=== PATIENT | female | born 1955 | race Caucasian/White ===

== ENCOUNTER → 2023-01-27 14:44 | Outpatient (CLI) | payer MEDICARE, MEDICAID, OTHER, SELFPAY ==
--- NOTE | 2023-01-27 | DI.MRI.S_ITS ---
PROCEDURE: MR HEAD/BRAIN WO CON INDICATIONS: SEVERE DEMENTIA TECHNIQUE: Non-contrast axial T1 spin echo, axial T2 fast spin echo, sagittal and axial FLAIR, coronal T2 fast spin echo, axial gradient echo, axial diffusion and ADC through the brain. COMPARISON: None. FINDINGS: Image quality: This examination is limited by involuntary motion artifact. CSF spaces: Ventricles appear symmetric in size and shape. Basal cisterns are patent. No extra-axial fluid collections. Brain: No intracranial bleeds or mass effects. There is cerebral volume loss for age. There are periventricular and deep white matter chronic small vessel ischemic changes. Brainstem appears normal. Diffusion-weighted images show no acute ischemic insults. No chronic ischemic insults. Normal intravascular flow voids are present. Skull and face: Calvarial bone marrow is normal in signal. Orbits are normal. Sinuses: Sinuses and mastoids are clear. IMPRESSION: Brain MRI within normal limits for age, with note made of brain parenchymal volume loss and chronic small vessel ischemic change. Dictated by: Ryan Mackay M.D. on 01/27/2023 at 17:06 Approved by: Ryan Mackay M.D. on 01/27/2023 at 17:06
== END ==
PROVIDERS: Referring Provider Psychiatry & Neurology Vascular Neurology; Visit Provider Psychiatry & Neurology Vascular Neurology
DX: F03.C18 Unspecified dementia, severe, with other behavioral disturbance; R41.89 Other symptoms and signs involving cognitive functions and awareness
CPT/HCPCS: 70551

== ENCOUNTER 2023-02-09 02:21 | Inpatient (IN) | payer MEDICARE, OTHER, MEDICAID, SELFPAY ==
[2023-02-09] VITALS (23 sets, daily range): BP systolic 92–155; BP diastolic 46–82; PULSE 65–83; RESP 14–20; TEMP 36.1–37; O2SAT 95–100; BMI 18.3
--- NOTE | 2023-02-09 | DI.RAD.S_ITS ---
PROCEDURE: XR PELVIS 1-2V INDICATIONS: POST OP TECHNIQUE: 1 view of the lower pelvis acquired. COMPARISON: [facility], , XR PELVIS 1-2V, 02/09/2023, 19:49. FINDINGS: Bones: Patient is status post right total hip arthroplasty, with hardware components in expected positions. The hip joint appears congruent. The visualized bony structures appear intact. Severe degenerative changes of the left hip as before. Soft tissues: Overlying postoperative changes are noted. No suspicious soft tissue densities. IMPRESSION: Status post right total hip arthroplasty with expected postsurgical soft tissue changes. No evidence for gross hardware complication. Dictated by: Lex Alejandra M.D. on 02/10/2023 at 12:18 Approved by: Lex Alejandra M.D. on 02/10/2023 at 12:19
--- NOTE | 2023-02-09 | DI.RAD.S_ITS ---
PROCEDURE: XR PELVIS 1-2V INDICATIONS: RIGHT SIDED INTRA OP TECHNIQUE: Intra-operative view of the pelvis and hip acquired. COMPARISON: [facility], CR, XR HIP W PEL IF DONE RT 2V, 02/09/2023, 2:49. FINDINGS: Bones: Intraoperative devices prior to placement of arthroplasty prostheses are in expected positions. No fractures or suspicious bony lesions. Soft tissues: Overlying surgical retractors are present, along with other intraoperative changes. IMPRESSION: 1. Intraoperative study obtained for surgical guidance demonstrates placement of femoral prosthetic component. Dictated by: Parvez Shipman M.D. on 02/09/2023 at 20:18 Approved by: Parvez Shipman M.D. on 02/09/2023 at 20:20
--- NOTE | 2023-02-09 02:38 | DI.RAD.S_ITS ---
PROCEDURE: XR HIP W PEL IF DONE RT 2V INDICATIONS: fall with hip pain TECHNIQUE: AP pelvis with lateral view(s) of the right hip(s). COMPARISON: None. FINDINGS: Bones: There is an acute intertrochanteric femoral neck fracture with displacement and angulation. Probable healed old left femoral neck fracture with increased angulation of the left femoral neck. Pelvic ring appears intact. No suspicious bony lesions. Moderate arthritic changes in hips and sacroiliac joints bilaterally. Severe degenerative disc and facet disease in lower lumbar spine Soft tissues: The visualized bowel gas pattern is normal. No suspicious soft tissue calcifications. IMPRESSION: 1. Intertrochanteric right femoral neck fracture. No significant discrepancy with the manufacturing supervisor 2nd shift radiology preliminary report. Dictated by: Mandy Flores M.D. on 02/09/2023 at 8:11 Approved by: Mandy Flores M.D. on 02/09/2023 at 8:14
--- NOTE | 2023-02-09 02:44 | DI.CT.S_ITS ---
PROCEDURE: CT CERVICAL SPINE WO CON INDICATIONS: fall out of bed with dementia TECHNIQUE: Noncontrast 3 mm thick sections acquired from the skull base to the T4 level. Sagittal and coronal reformats were then constructed. For radiation dose reduction, the following was used: automated exposure control, adjustment of mA and/or kV according to patient size. COMPARISON: None. FINDINGS: Image quality: Excellent. Bones: No fractures or dislocations. Degenerative disc disease, [id number] at C4-C5, C5-C6 and C6-C7. Moderate facet arthropathy scattered in cervical spine. Degenerative joint disease of the atlantoaxial joint. Visualized superior ribs are intact. Soft tissues: Prevertebral soft tissues are normal in thickness. No paravertebral hematomas. No apical pneumothoraces. IMPRESSION: 1. No acute cervical spine injuries. 2. Degenerative changes in cervical spine. No significant discrepancy with the car shifter radiology preliminary report. Dictated by: Mandy Flores M.D. on 02/09/2023 at 7:59 Approved by: Mandy Flores M.D. on 02/09/2023 at 8:00
--- NOTE | 2023-02-09 02:44 | DI.CT.S_ITS ---
PROCEDURE: CT HEAD/BRAIN WO CON INDICATIONS: fall out of bed with dementia TECHNIQUE: Noncontrast 4.5 mm thick angled axial sections acquired from the foramen magnum to the vertex, with coronal and sagittal reformats. For radiation dose reduction, the following was used: automated exposure control, adjustment of mA and/or kV according to patient size. COMPARISON: [facility], MR, MR HEAD/BRAIN WO CON, 01/27/2023, 17:12. FINDINGS: Image quality: Excellent. CSF spaces: Basal cisterns are patent. No extra-axial fluid collections. The ventricles are symmetric in size and shape. Brain: No intracranial bleeds or masses. There is cerebral volume loss for age, with resultant ventricular and sulcal prominence. There are periventricular and deep white matter chronic small vessel ischemic changes. There is intracranial internal carotid artery atherosclerosis. Skull and face: Calvarium and visualized facial bones appear intact, without suspicious lesions. Sinuses: Visualized sinuses and mastoids are clear. IMPRESSION: 1. No acute intracranial abnormalities. 2. Cerebral volume loss and chronic microvascular ischemic changes. Dictated by: Mandy Flores M.D. on 02/09/2023 at 7:46 Approved by: Mandy Flores M.D. on 02/09/2023 at 7:50
--- NOTE | 2023-02-09 04:16 | ED.FALL ---
HPI - Fall General Chief Complaint: Fall Stated Complaint: Fall from bed Time Seen by Provider: 02/09/23 04:09 Source: EMS Mode of arrival: EMS History of Present Illness HPI Narrative: This is a 67-year-old female with reported history of dementia patient's current home medications include lorazepam and citalopram. She presents from care facility where she had a fall the side of her bed to the ground. They believe it occurred about 10 minutes prior to being seen by staff. Patient is unable to give history she can tell me her name, she was able to give me the year but has difficulty give me any information. She does have pain in her right hip. She does not know if she hit her head, unknown if any loss of consciousness. Patient does not have any pain other than at the hip or with movement of the right leg. No known drug allergies per EMR or patient's facility paperwork. Patient currently denies headache or neck pain. Denies any chest pain or shortness of breath. Denies nausea or vomiting or other GI or urinary symptoms. She indicates her leg hurts. She does not give much additional history. Related Data Home Medications Medication Instructions Recorded Confirmed citalopram 10 mg tablet 10 mg PO DAILY 02/09/23 02/09/23 ibuprofen 200 mg PO DAILY Pain 02/09/23 02/09/23 lorazepam 0.5 mg tablet 0.5 mg PO Q6H Agitation 02/09/23 02/09/23 Allergies Allergy/AdvReac Type Severity Reaction Status Date / Time No Known Drug Allergies Allergy Verified 02/09/23 02:26 Review of Systems Review of Systems ROS Unobtainable: All systems reviewed & are unremarkable except as noted in HPI and below Patient History Social History marital status: household members: caregiver Smoking Status: Never smoker alcohol intake: former Exam Narrative Exam Narrative: GEN: well nourished, well appearing elderly female, alert and oriented to year, patient appears to be in mild to moderate distress. HEENT: Atraumatic, pupils are equal round reactive to light, extraocular movements are intact, nares are clear, TMs are clear with no fluid, there is no conjunctival pallor. Throat is clear without any exudates, erythema, tonsillar enlargement or uvular deviation, no facial droop. HEART: Regular rate and rhythm without murmur, clicks, rubs. pulses are equal in upper and lower extremities LUNGS:Lungs clear to auscultation, no wheezes, rales, crackles, chest moves symmetrically ABD:bowel sounds normal, soft, non-tender, no guarding, rebound, rigidity, no masses noted, no hepatosplenomegaly :No CVA tenderness MSCL: Patient is tender over the right, she is increased pain with of the hip. No bony tenderness in the knee or lower leg. She is able to dorsiflex and plantar flex bilaterally., no muscle atrophy, muscles strength 5/5 upper and lower extremities, full range of motion, dorsalis pedis positive bilaterally. Cap refill less than 2 seconds. NEURO:CN 2-12 intact, sensation normal SKIN: No rash, erythema or other skin infections. Initial Vital Signs Initial Vital Signs: Vital Signs Pulse Rate 76 02/09/23 02:24 Pulse Oximetry 99 02/09/23 02:24 Course Orders Ordered: Acetaminophen (Acetaminophen 325 Mg Tablet) 650 mg PO Q6H PRN PRN Reason: Fever/Mild Pain (1-3) Last Admin: 02/09/23 06:39 Dose: 650 mg Documented By: SHERRI Hydrocodone Bitart/Acetaminophen (Hydrocodone/Acet 5/325 Tablet) 1 tab PO Q4H PRN PRN Reason: Pain, Moderate (4-6) Citalopram Hydrobromide (Citalopram 10 Mg Tablet) 10 mg PO DAILY [facility] Last Admin: 02/09/23 15:52 Dose: Not Given Documented By: BENI Docusate Sodium (Docusate 100 Mg Capsule) 100 mg PO BID [facility] Enoxaparin Sodium (Enoxaparin 40 Mg/0.4 Ml Syringe) 40 mg SUBCUT DAILY [facility] Hydromorphone HCl (Hydromorphone 0.5 Mg Inj) 0.5 mg IV Q3H PRN PRN Reason: Pain, Moderate (4-6) Last Admin: 02/10/23 07:03 Dose: 0.5 mg Documented By: Admin: 02/10/23 03:19 Dose: 0.5 mg Documented By: Admin: 02/10/23 00:16 Dose: 0.5 mg Documented By: Admin: 02/09/23 13:51 Dose: 0.5 mg Documented By: BENI Lactated Ringer's (Lactated Ringers) 1,000 mls @ 42 mls/hr IV NOW ONE Stop: 02/10/23 17:37 Last Infusion: 02/09/23 21:37 Dose: 0 mls/hr Documented By: Admin: 02/09/23 20:03 Dose: 42 mls/hr Documented By: Infusion: 02/09/23 20:03 Dose: 42 mls/hr Documented By: Admin: 02/09/23 17:49 Dose: 42 mls/hr Documented By: YOVANI Ceftriaxone Sodium 1,000 mg/ (Sodium Chloride) 100 mls @ 200 mls/hr IV Q24H [facility] Stop: 02/12/23 18:29 Last Admin: 02/09/23 23:21 Dose: Not Given Documented By: Lactated Ringer's (Lactated Ringers) 1,000 mls @ 100 mls/hr IV CONT MANUEL Last Admin: 02/09/23 23:22 Dose: 100 mls/hr Documented By: Cefazolin Sodium/Dextrose (Ancef) 100 mls @ 200 mls/hr IV Q8H [facility] Stop: 02/10/23 11:29 Last Infusion: 02/10/23 03:20 Dose: 0 mls/hr Documented By: Admin: 02/10/23 03:05 Dose: 200 mls/hr Documented By: Lorazepam (Lorazepam 0.5 Mg Tablet) 0.5 mg PO Q6HR PRN PRN Reason: Agitation Last Admin: 02/10/23 00:24 Dose: 0.5 mg Documented By: Naloxone HCl (Naloxone 0.4 Mg/Ml Vial) 0.2 mg IV Q2MIN PRN PRN Reason: Opiate Reversal Ondansetron HCl (Ondansetron 4 Mg/2 Ml Inj) 4 mg IV Q4HR PRN PRN Reason: Nausea And Vomiting Ondansetron HCl (Ondansetron 4 Mg Odt) 4 mg PO Q4HR PRN PRN Reason: Nausea Polyethylene Glycol (Polyethylene Glycol 3350 17 Gm Powd.Pack) 17 gm PO DAILY PRN PRN Reason: Constipation Discontinued Medications Acetaminophen (Acetaminophen 325 Mg Tablet) 975 mg PO PACUNOW PRN PRN Reason: Pain, Mild (1-3) Bupivacaine HCl 30 ml/ (Epinephrine HCl 0.15 mg) 0 ml INJ NOW ONE Stop: 02/09/23 19:38 Last Admin: 02/09/23 19:38 Dose: 60 ml Documented By: CC Fentanyl (Fentanyl 100 Mcg/2 Ml Inj) 0 mcg IV Q5M PRN PRN Reason: Pain, Moderate (4-6) Hydromorphone HCl (Hydromorphone 2 Mg Inj) 0 mg IV Q5M PRN PRN Reason: Pain, Moderate (4-6) Sodium Chloride (Normal Saline 0.9%) 1,000 mls @ 75 mls/hr IV CONT MANUEL Last Admin: 02/09/23 15:31 Dose: 75 mls/hr Documented By: BENI Cefazolin Sodium/Dextrose (Ancef) 100 mls @ 200 mls/hr IV NOW ONE Stop: 02/09/23 18:59 Last Infusion: 02/09/23 18:55 Dose: 0 mls/hr Documented By: Admin: 02/09/23 18:50 Dose: 200 mls/hr Documented By: Morphine Sulfate (Morphine 2 Mg/Ml Inj) 2 mg IV NOW ONE Stop: 02/09/23 04:15 Last Admin: 02/09/23 04:24 Dose: 2 mg Documented By: KELLI Morphine Sulfate (Morphine 4 Mg/Ml Inj) 3 mg IV Q4HR PRN PRN Reason: Pain, Severe (7-10) Last Admin: 02/09/23 12:28 Dose: 3 mg Documented By: Admin: 02/09/23 08:22 Dose: 3 mg Documented By: BENI Ondansetron HCl (Ondansetron 4 Mg/2 Ml Inj) 4 mg IV Q8HR PRN PRN Reason: Nausea And Vomiting Ondansetron HCl (Ondansetron 4 Mg/2 Ml Inj) 4 mg IV NOW PRN PRN Reason: Nausea And Vomiting Oxycodone/Acetaminophen (Oxycodone/Acetaminophen 5/325 Tablet) 1 tab PO PACUNOW PRN PRN Reason: Mild or Moderate Pain Tranexamic Acid (Tranexamic Acid 1,000 Mg Vial) 2,000 mg INJ NOW ONE Stop: 02/09/23 20:03 Last Admin: 02/09/23 20:53 Dose: 1,000 mg Documented By: Admin: 02/09/23 19:25 Dose: 1,000 mg Documented By: AB Vital Signs Vital signs: Vital Signs - 8 hr 02/09/23 02:25 02/09/23 02:24 02/09/23 02:30 Temperature 97.2 F L Pulse Rate 75 76 71 Respiratory Rate 17 Blood Pressure 119/69 Pulse Oximetry 99 99 98 Oxygen Delivery Method Room Air 02/09/23 03:00 02/09/23 03:36 02/09/23 04:00 Temperature Pulse Rate 77 70 74 Respiratory Rate 20 Blood Pressure Pulse Oximetry 99 98 100 Oxygen Delivery Method 02/09/23 04:29 02/09/23 04:29 02/09/23 04:30 Temperature Pulse Rate 78 82 Respiratory Rate Blood Pressure 143/82 H Pulse Oximetry 100 100 Oxygen Delivery Method MDM - Fall Lab Data 02/10/23 04:15 02/10/23 04:15 Labs: Lab Results 02/09/23 02/09/23 02/09/23 Range/Units 04:28 04:28 04:28 WBC 9.9 (4.5-11.0) X10^3/uL RBC 4.88 (4.0-5.2) X10^6/uL Hgb 14.3 (12.0-16.0) g/dL Hct 42.5 (36-46) % MCV 87.1 (80-100) fL MCH 29.2 (26-34) PG MCHC 33.5 (30-36) % RDW 13.5 (11.6-14.8) % Plt Count 248 (150-400) X10^3/uL Neut % (Auto) 70.4 (50-75) % Lymph % (Auto) 20.1 L (25-40) % [place] % (Auto) 6.1 (3-14) % Eos % (Auto) 2.8 (2-4) % Baso % (Auto) 0.6 (0-2) % Neut # (Auto) 6900 (9106-5082) /uL Lymph # (Auto) 2000 (2070-8606) /uL [place] # (Auto) 600 (0-900) /uL Eos # (Auto) 300 (0-450) /uL Baso # (Auto) 100 (0-100) /uL PT 10.1 (10.1-12.7) SECONDS INR 0.9 (0.9-1.3) APTT 33 (26-36) SECONDS Sodium 140 (137-145) mmol/L Potassium 3.8 (3.4-5.1) mmol/L Chloride 105 (98-107) mmol/L Carbon Dioxide 28 (22-32) mmol/L BUN 15 (7-17) mg/dL Creatinine 0.92 (0.52-1.04) mg/dL Estimated GFR > 60 (>60) mL/min BUN/Creatinine Ratio 16.3 (6-22) Glucose 91 (80-110) mg/dL Calcium 9.1 (8.4-10.2) mg/dL Total Bilirubin 0.6 (0.2-1.3) mg/dL AST 25 (14-36) IU/L ALT 20 (<35) IU/L Alkaline Phosphatase 81 (38-126) U/L Total Protein 7.3 (6.3-8.2) g/dL Albumin 4.3 (3.5-5.0) g/dL Globulin 3.0 (1.7-4.1) g/dL Albumin/Globulin Ratio 1.4 (1.0-2.8) SARS-CoV-2 (PCR) (Negative) 02/09/23 Range/Units 04:28 WBC (4.5-11.0) X10^3/uL RBC (4.0-5.2) X10^6/uL Hgb (12.0-16.0) g/dL Hct (36-46) % MCV (80-100) fL MCH (26-34) PG MCHC (30-36) % RDW (11.6-14.8) % Plt Count (150-400) X10^3/uL Neut % (Auto) (50-75) % Lymph % (Auto) (25-40) % [place] % (Auto) (3-14) % Eos % (Auto) (2-4) % Baso % (Auto) (0-2) % Neut # (Auto) (7492-3791) /uL Lymph # (Auto) (9224-2357) /uL [place] # (Auto) (0-900) /uL Eos # (Auto) (0-450) /uL Baso # (Auto) (0-100) /uL PT (10.1-12.7) SECONDS INR (0.9-1.3) APTT (26-36) SECONDS Sodium (137-145) mmol/L Potassium (3.4-5.1) mmol/L Chloride (98-107) mmol/L Carbon Dioxide (22-32) mmol/L BUN (7-17) mg/dL Creatinine (0.52-1.04) mg/dL Estimated GFR (>60) mL/min BUN/Creatinine Ratio (6-22) Glucose (80-110) mg/dL Calcium (8.4-10.2) mg/dL Total Bilirubin (0.2-1.3) mg/dL AST (14-36) IU/L ALT (<35) IU/L Alkaline Phosphatase (38-126) U/L Total Protein (6.3-8.2) g/dL Albumin (3.5-5.0) g/dL Globulin (1.7-4.1) g/dL Albumin/Globulin Ratio (1.0-2.8) SARS-CoV-2 (PCR) Negative (Negative) Imaging Data CT scan - head: Radiologist's Impression: Negative head CT CT - cervical spine: Radiologist's Impression: Multilevel spondylotic changes cervical spine without acute traumatic injury. Patient has broad-based osteophyte complexes at C4 through 5, C5-6 and C6-7 with bilateral neural foraminal narrowing and [id number] central canal stenosis at these levels. Multilevel on current vertebral facet arthrosis. Extremity x-ray #1: Radiologist's Impression: Minimally displaced right intertrochanteric fracture. Degenerative changes of the bilateral femoral acetabular joints. MDM Narrative Medical decision making narrative: This is a 67-year-old female with unwitnessed ground level fall. Patient has right intratrochanteric fracture. Head CT and C-spine do not show any fracture or acute change, these were obtained secondary to patient's history of dementia and unable to provide history. Patient has multiple spondylitic changes of the cervical spine without acute traumatic injury. Labs are obtained, IV access and pain medication. Spoke with Dr. Thao, orthopedic surgery: Discussed patient does have dementia reviewed there is contact information for and brother. Patient is able to give me her name and year but can not give me much additional history. Whole plan for likely OR later today. Reviewed no anticoagulation according to patient's facility list. Images were reviewed by Dr. Calderon. Spoke with Dr. Godfrey, hospitalist service, accepts for admission. Discharge Plan Departure Patient Disposition: Home Clinical Impression: Closed intertrochanteric fracture of right femur, Fall, Dementia
[2023-02-09] MEDS: MORPHINE 2 MG/ML INJ IV (04:24)
[2023-02-09 04:38] LABS: Add Manual Diff / Slide Review NO; Basophils Absolute Auto 100 /uL (0-100); Basophils Percent Auto 0.6 % (0-2); Eosinophils Absolute Auto 300 /uL (0-450); Eosinophils Percent Auto 2.8 % (2-4); Hematocrit 42.5 % (36-46); Hemoglobin 14.3 g/dL (12.0-16.0); Lymphocytes Absolute Auto 2000 /uL (1100-4500); Lymphocytes Percent Auto 20.1 % (25-40); Mean Corpuscular HGB Conc 33.5 % (30-36); Mean Corpuscular Hemoglobin 29.2 PG (26-34); Mean Corpuscular Volume 87.1 fL (80-100); Monocytes Absolute Auto 600 /uL (0-900); Monocytes Percent Auto 6.1 % (3-14); Neutrophils Absolute Auto 6900 /uL (1500-7000); Neutrophils Percent Auto 70.4 % (50-75); Platelet Count 248 X10^3/uL (150-400); Red Blood Cell Count 4.88 X10^6/uL (4.0-5.2); Red Cell Distribution Width 13.5 % (11.6-14.8); White Blood Cell Count 9.9 X10^3/uL (4.5-11.0)
[2023-02-09 04:43] LABS: INR 0.9 (0.9-1.3); Prothrombin Time 10.1 SECONDS (10.1-12.7)
[2023-02-09 04:46] LABS: PTT Partial Thromboplastin Tim 33 SECONDS (26-36)
[2023-02-09 04:47] LABS: Alanine Aminotransferase 20 IU/L (<35); Albumin 4.3 g/dL (3.5-5.0); Albumin Globulin Ratio 1.4 (1.0-2.8); Alkaline Phosphatase 81 U/L (38-126); Aspartate Aminotransferase 25 IU/L (14-36); BUN Creatinine Ratio 16.3 (6-22); Bilirubin Total 0.6 mg/dL (0.2-1.3); Blood Urea Nitrogen 15 mg/dL (7-17); Calcium 9.1 mg/dL (8.4-10.2); Carbon Dioxide 28 mmol/L (22-32); Chloride 105 mmol/L (98-107); Estimated Glomerular Filt Rate > 60 mL/min (>60); Glucose 91 mg/dL (80-110); HEMOLYSIS < 15 (0-50); Potassium 3.8 mmol/L (3.4-5.1); Sodium 140 mmol/L (137-145); Total Protein 7.3 g/dL (6.3-8.2)
[2023-02-09 04:48] LABS: COVID19 -Nasal RAPID Negative (Negative)
--- NOTE | 2023-02-09 05:25 | PM.CN ---
History of Present Illness Consult details Date Patient Seen: 02/09/23 Time Patient Seen: 17:44 Chief complaint: Fall from bed Reason for consult: Hip fracture Requesting provider: Katia Marquez Narrative: Patient is a 67-year-old female with dementia. All history obtained from ER physician and patient's and THOMAS Tijerina. Patient has been mostly wheelchair-bound with some limited ambulation with a walker or cane for the last 2 or 3 years. She was 3 years ago she had some sort of fracture on the left side treated in [facility]. States since then she is mostly used a wheelchair. She is severe dementia. States she is been very agitated through the day in the hospital and believes they also found a UTI. But otherwise her health has been stable. No other major medical problems. No anticoagulation. Recently was moved from home into [facility] Medications and Allergies Home Medications Medication Instructions Recorded Confirmed Type citalopram 10 mg tablet 10 mg PO DAILY 02/09/23 02/09/23 History ibuprofen 200 mg PO DAILY Pain 02/09/23 02/09/23 History lorazepam 0.5 mg tablet 0.5 mg PO Q6H Agitation 02/09/23 02/09/23 History Allergies Allergy/AdvReac Type Severity Reaction Status Date / Time No Known Drug Allergies Allergy Verified 02/09/23 02:26 Review of Systems Review of Systems ROS: Yes unobtainable due to mental condition Exam Vital Signs (past 8 hours): - 02/09/23 02:25 02/09/23 02:24 02/09/23 02:30 Temperature 97.2 F L Pulse Rate 75 76 71 Respiratory Rate 17 Blood Pressure 119/69 Pulse Oximetry 99 99 98 Oxygen Delivery Method Room Air 02/09/23 03:00 02/09/23 03:36 02/09/23 04:00 Temperature Pulse Rate 77 70 74 Respiratory Rate 20 Blood Pressure Pulse Oximetry 99 98 100 Oxygen Delivery Method 02/09/23 04:29 02/09/23 04:29 02/09/23 04:30 Temperature Pulse Rate 78 82 Respiratory Rate Blood Pressure 143/82 H Pulse Oximetry 100 100 Oxygen Delivery Method Oxygen Delivery Method Room Air Objective Imaging AP pelvis and lateral right hip x-ray: My impression: Right femoral neck fracture mild displacement. 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 Radiologist's impression: Right intertrochanteric fracture Labs 02/09/23 04:28 02/09/23 04:28 Labs: Laboratory Results - last 24 hr 02/09/23 02/09/23 02/09/23 04:28 04:28 04:28 WBC 9.9 RBC 4.88 Hgb 14.3 Hct 42.5 MCV 87.1 MCH 29.2 MCHC 33.5 RDW 13.5 Plt Count 248 Neut % (Auto) 70.4 Lymph % (Auto) 20.1 L [place] % (Auto) 6.1 Eos % (Auto) 2.8 Baso % (Auto) 0.6 Neut # (Auto) 6900 Lymph # (Auto) 2000 [place] # (Auto) 600 Eos # (Auto) 300 Baso # (Auto) 100 PT 10.1 INR 0.9 APTT 33 Sodium 140 Potassium 3.8 Chloride 105 Carbon Dioxide 28 BUN 15 Creatinine 0.92 Estimated GFR > 60 BUN/Creatinine Ratio 16.3 Glucose 91 Calcium 9.1 Total Bilirubin 0.6 AST 25 ALT 20 Alkaline Phosphatase 81 Total Protein 7.3 Albumin 4.3 Globulin 3.0 Albumin/Globulin Ratio 1.4 SARS-CoV-2 (PCR) 02/09/23 04:28 WBC RBC Hgb Hct MCV MCH MCHC RDW Plt Count Neut % (Auto) Lymph % (Auto) [place] % (Auto) Eos % (Auto) Baso % (Auto) Neut # (Auto) Lymph # (Auto) [place] # (Auto) Eos # (Auto) Baso # (Auto) PT INR APTT Sodium Potassium Chloride Carbon Dioxide BUN Creatinine Estimated GFR BUN/Creatinine Ratio Glucose Calcium Total Bilirubin AST ALT Alkaline Phosphatase Total Protein Albumin Globulin Albumin/Globulin Ratio SARS-CoV-2 (PCR) Negative PFSH Social History marital status: Assessment & Plan Assessment and plan (1) Osteoporotic hip fracture: Status: Acute (2) Dementia: Status: Acute Plan osteoporotic hip fracture right -possible surgery this evening 5pm or 6pm Patient has a displaced right femoral neck fracture. The radiologist read this as a inter troch fracture however it exits above the lesser and more consistent with a low femoral neck fracture. Do not think this is great healing potential on its own. I would recommend endoprosthesis fixation with unipolar hemiarthroplasty. The patient also has underlying hip arthritis. Pain objective of surgery will be pain relief ability to weight bear and avoid nonunion or malunion. And aid in mobilization help avoid some of the complications associated with prolonged immobility. We discussed that a hip fracture is a serious event and there is a proximally 10% 1st month mortality and 20-30% 1 year mortality. The risks and benefits of the procedure have been discussed with the POA and they have been given the opportunity to ask questions. The risks of surgery include but are not limited to infection, fracture, need for additional surgery, dislocation, leg length discrepancy, persistence of pain, damage to nerves and blood vessels, posttraumatic arthritis, DVT, PE, cardiopulmonary complications and . The POA expressed a thorough understanding of the risks and benefits of surgery and has elected to proceed. Consent was signed The site of surgery was marked She is admitted to the Internal Medicine team. will require inpatient care for her hip fracture until she can be safely discharged High-level medical decision-making. Inpatient procedure serious risk of medical treatment including blood loss, need for transfusion, pneumonia, cognitive decline with dementia and general anesthesia stroke heart attack associated with hip fracture in elderly patient with dementia. Independent historian POA. X-rays independently interpreted. Surgical decision-making. Time Spent With Patient Time with patient: 50 to 69 minutes with 50% spent counseling/coordinating care
--- NOTE | 2023-02-09 05:50 | PM.HP.1 ---
History of Present Illness History of Present Illness Date Patient Seen: 02/09/23 Time Patient Seen: 06:30 Chief complaint: Fall from bed Narrative: Ms. Moulton is a 67W with H dementia who presents to the hospital after a fall. She lives at a facility and she was found down on the ground. She is not able to provide much information due to her dementia. How she fell is unknown. Her facility suspects she fell within 10 minutes of being found down on the ground. She was complaining of right hip pain and unable to ambulate. She did not have any pain anywhere else. It is unknown if she had injury or loss of consciousness, however she has no visible head injury. In the ED workup was done, vitals notable for afebrile, heart rate in the 70s, blood pressure 100s/60s, sats 99% on room air. Labs reviewed by me and WBC 9.9, hgb 14.3, plts 248. Na 140, k 3.8, cl 105, creatinine 0.92. INR 0.9. LFTs normal. CT head reviewed by me and negative for intracranial bleed. CT c-spine per radiologist notable for no acute process. Hip xray showed minimally displaced right intratrochanteric hip fracutre. Orthopedic surgery consulted. She was admitted for further treatment. Meds Home Medications and Allergies Allergies Allergy/AdvReac Type Severity Reaction Status Date / Time No Known Drug Allergies Allergy Verified 02/09/23 02:26 Review of Systems Review of Systems Narrative: 14 systems reviewed and negative aside from what is noted in HPI Exam Vital Signs (past 8 hours): - 02/09/23 02:25 02/09/23 02:24 02/09/23 02:30 Temperature 97.2 F L Pulse Rate 75 76 71 Respiratory Rate 17 Blood Pressure 119/69 Pulse Oximetry 99 99 98 Oxygen Delivery Method Room Air 02/09/23 03:00 02/09/23 03:36 02/09/23 04:00 Temperature Pulse Rate 77 70 74 Respiratory Rate 20 Blood Pressure Pulse Oximetry 99 98 100 Oxygen Delivery Method 02/09/23 04:29 02/09/23 04:29 02/09/23 04:30 Temperature Pulse Rate 78 82 Respiratory Rate Blood Pressure 143/82 H Pulse Oximetry 100 100 Oxygen Delivery Method Oxygen Delivery Method Room Air Narrative Exam Narrative: GEN: no acute distress HEENT: moist mucous membranes, PERRL NECK: trachea midline, no jvd PULM: clear bilaterally, no wheezes, rhonchi, rales CV: regular rate and rhythm, no murmurs ABD: soft, nontender, nondistended, no organomegaly EXT: warm and well perfused with no edema, tender to palpation over right hip NEURO: awake, alert, oriented, no focal deficits Objective Labs 02/09/23 04:28 02/09/23 04:28 Labs: Laboratory Results - last 24 hr 02/09/23 02/09/23 02/09/23 04:28 04:28 04:28 WBC 9.9 RBC 4.88 Hgb 14.3 Hct 42.5 MCV 87.1 MCH 29.2 MCHC 33.5 RDW 13.5 Plt Count 248 Neut % (Auto) 70.4 Lymph % (Auto) 20.1 L [place] % (Auto) 6.1 Eos % (Auto) 2.8 Baso % (Auto) 0.6 Neut # (Auto) 6900 Lymph # (Auto) 2000 [place] # (Auto) 600 Eos # (Auto) 300 Baso # (Auto) 100 PT 10.1 INR 0.9 APTT 33 Sodium 140 Potassium 3.8 Chloride 105 Carbon Dioxide 28 BUN 15 Creatinine 0.92 Estimated GFR > 60 BUN/Creatinine Ratio 16.3 Glucose 91 Calcium 9.1 Total Bilirubin 0.6 AST 25 ALT 20 Alkaline Phosphatase 81 Total Protein 7.3 Albumin 4.3 Globulin 3.0 Albumin/Globulin Ratio 1.4 SARS-CoV-2 (PCR) 02/09/23 04:28 WBC RBC Hgb Hct MCV MCH MCHC RDW Plt Count Neut % (Auto) Lymph % (Auto) [place] % (Auto) Eos % (Auto) Baso % (Auto) Neut # (Auto) Lymph # (Auto) [place] # (Auto) Eos # (Auto) Baso # (Auto) PT INR APTT Sodium Potassium Chloride Carbon Dioxide BUN Creatinine Estimated GFR BUN/Creatinine Ratio Glucose Calcium Total Bilirubin AST ALT Alkaline Phosphatase Total Protein Albumin Globulin Albumin/Globulin Ratio SARS-CoV-2 (PCR) Negative Assessment & Plan Assessment & Plan narrative: 1. Acute hip fracture -notable from fall, probably mechanical -has displaced intratrochanteric right hip fracture -NPO -pain medications ordered -orthopedic surgery consulted to evaluate for surgical repair 2. Dementia -will need to discuss consent with POA I have discussed plan with patient. I have discussed plan of care with ED physician and bedside nurse. I have reviewed labs, and imaging CODE: to obtain Proxy: Breezy Nicole, [facility] Meds 'Current medications' to include all prescriptions, [id number] products, herbals, cannabis/cannabidiol products, and vitamin/mineral/dietary (nutritional) supplements. I have utilized all available resources to obtain, update, or review the patient?s current medications. [If Yes, STOP here]: Yes
[2023-02-09] MEDS: ACETAMINOPHEN 325 MG TABLET 650 MG PO (06:39)
--- NOTE | 2023-02-09 07:24 | PC.NURSE ---
Pressure ulcer to sacrum
[2023-02-09] MEDS: MORPHINE 4 MG/ML INJ 3 MG IV ×2 (08:22→12:28)
--- NOTE | 2023-02-09 08:29 | CM.DANOTE ---
Addendum entered by Rylie Lu R.N. 02/09/23 14:40: Called over at [facility], was able to get in touch with their new DNS, Debbie Madden, ext [phone]. She gave this DC Automotive Technician some information on patient. Indicated that she had been very agitated yesterday, kicked the gate when she could not leave. She is wondering if this could have contributed to fracture. She was also concerned if patient had a UTI. Let her know that hospital may have collected her urine, will bring this up to hospitalist. Did let her know that placing patient into a group home facility may be challenging, if she continues to attempt getting up, and not being able to understand directions as far as P.T. goes. Asked her if she is prepared to take patient back after surgery. She indicated, they don't usually take post op patients, but did confirm that patient is mostly in a wheelchair at her baseline. Let her know that DC Planners will see how patient does post surgery, and will continue to give updates. Did give Medicare Choice List to spouse to review. Addendum entered by Rylie Lu R.N. 02/09/23 11:35: Met with patient's spouse, Breezy, who is at bedside. Patient is attempting to get out of bed at times, Surgery is scheduled for today. Did discuss group home, gave him the Medicare Choice List to review, let him also know that [facility] is also on [facility]. Barrier is her dementia, may not be able to secure a facility if she continues to get up, and may not be able to understand any types of therapies, but did give spouse information just in case. Will need to see how she does after her surgery. Original Note: DCP: Case received, EMR reviewed and met with patient. Introduced self and role. Due to patient's dementia. was not able to get information regarding her baseline activity, but did get in touch with [facility], spoke to [facility], and was able to obtain. DCP assessment completed with information currently available. Patient is a 67 year old female who admitted early this morning to the care of the hospitalist team. PCP: JV Walker/Dr. Kaminski. Payer: confirmed: Medicare/[place]. Patient came to the hospital via ambulance secondary to having a ground level fall at her facility. Notes indicate that staff at [facility] found her. She had complained of 'leg pain. Patient has dementia, she could not provide much history or information. Patient was noted to have minimally displaced right-intratrochanteric hip fracture. Patient's spouse, Breezy, is main contact. Ortho is to be consulting, and provider will need consent from spouse, before doing surgery. Met briefly with patient. She smiles, does not engage in conversation, but was able to tell this DC Automotive Technician her name, but no other information. Spoke to Trupti at [facility], one of the [employer] techs. Confirmed that patient resides in the [facility] at [facility], in the dementia unit. She gets around by wheel-chair, self propells. She is full care. She indicated that her spouse usually visits daily, and should be on his way to the hospital. Confirmed that their new nursing home social worker is Debbie Madden, ext [phone]. Martina is still the marketing proposal specialist. P: DCP to follow closely, will discuss further during team rounds. Will find out more information regarding her surgery.Should patient benefit or need skilled, can look into [facility], since they are the [place], but barrier could be her dementia, and may be in patient's best interest to return to [facility], if possible. Rylie Lu RN/Linen Manager Discharge Planning/Care Management Discharge Assessment Start: 02/09/23 08:26 Freq: Status: Active Protocol: Document 02/09/23 08:26 (Rec: 02/09/23 08:29 [id number]) Discharge Planning Assessment Assigned Image Assembler Rylie Lu RN/Linen Manager Advance Directives? No History Provided By Medical Record Has Patient been admitted in last 30 No days? Prior Living Arrangements Assisted Living Household Members caregiver Type of transporation used prior to Relies on Others admit Facility Name Admitted From: [facility] Willing to Return to Facility? Yes Independent with ADL's No Is patient alert and oriented? No Needs Assistance With Bathing,Eating,Grooming,Meal Prep,Toileting,Managing Medications,Home Chores / Shopping Caregiver for Another No DME Already Rented / Owned Wheelchair Comment Most osbaldo may need skilled, but due to her dementia, may not be a candidate, may need to return to [facility] Discharge Plan Home Transportation Arrangement Facility Referrals Initiated Other Additional Comment Patient is scheduled for surgery today. She will then work with [facility], will see if she can benefit with skilled versus going back to [facility] Updated in Patient Room with Yes name and ext. # of Image Assembler Review Status In Process Next Review Type Continued Stay Review
--- NOTE | 2023-02-09 09:53 | PM.CN ---
History of Present Illness Consult details Date Patient Seen: 02/09/23 Time Patient Seen: 09:53 Chief complaint: Fall from bed Reason for consult: right hip fx Requesting provider: Katia Marquez Narrative: Venessa is a 67 year old female with severe dementia; all information per Breezy Nicole, and POA. In about 2014 she suffered a hip fracture and was hospitalized at [facility]; does not remember the side and does not think she was treated surgically. She was using an assistive device of some kind following this injury. She was living with him at home until about 2 months ago; she was in a wheelchair on the first floor, then able to get up the stairs with a cane to the second floor, at which point she was using a walker. About 2 months ago she fell twice, heavily, even with her 's assistance and he placed her at [facility]. She was found down in her room last night and was c/o right leg pain and taken to the ED here. Imaging revealed a minimally displaced right intertrochanteric hip fx and Dr Calderon was consulted. Meds Home Medications and Allergies Allergies Allergy/AdvReac Type Severity Reaction Status Date / Time No Known Drug Allergies Allergy Verified 02/09/23 02:26 Review of Systems Review of Systems Narrative: Unable to obtain d/t mental status. Pt indicates right foot as souce of pain. Exam Vital Signs (past 8 hours): - 02/09/23 02:25 02/09/23 02:24 02/09/23 02:30 Temperature 97.2 F L Pulse Rate 75 76 71 Respiratory Rate 17 Blood Pressure 119/69 Pulse Oximetry 99 99 98 Oxygen Delivery Method Room Air Oxygen Flow Rate 02/09/23 03:00 02/09/23 03:36 02/09/23 04:00 Temperature Pulse Rate 77 70 74 Respiratory Rate 20 Blood Pressure Pulse Oximetry 99 98 100 Oxygen Delivery Method Oxygen Flow Rate 02/09/23 04:29 02/09/23 04:29 02/09/23 04:30 Temperature Pulse Rate 78 82 Respiratory Rate Blood Pressure 143/82 H Pulse Oximetry 100 100 Oxygen Delivery Method Oxygen Flow Rate 02/09/23 05:00 02/09/23 05:00 02/09/23 05:30 Temperature Pulse Rate 82 65 Respiratory Rate Blood Pressure 114/70 Pulse Oximetry 99 98 Oxygen Delivery Method Oxygen Flow Rate 02/09/23 06:10 02/09/23 09:24 02/09/23 09:24 Temperature 97.5 F L Pulse Rate 73 Respiratory Rate 16 Blood Pressure 115/56 L Pulse Oximetry 99 96 Oxygen Delivery Method Room Air Room Air Oxygen Flow Rate 0 0 Oxygen Delivery Method Room Air Oxygen Flow Rate 0 Narrative Exam Narrative: Moves right leg spontaneously, no gross bruising or deformity noted in RLE. Const Orientation: other (appears to be confused, is nonverbal with me) Objective Labs 02/09/23 04:28 02/09/23 04:28 Labs: Laboratory Results - last 24 hr 02/09/23 02/09/23 02/09/23 04:28 04:28 04:28 WBC 9.9 RBC 4.88 Hgb 14.3 Hct 42.5 MCV 87.1 MCH 29.2 MCHC 33.5 RDW 13.5 Plt Count 248 Neut % (Auto) 70.4 Lymph % (Auto) 20.1 L [place] % (Auto) 6.1 Eos % (Auto) 2.8 Baso % (Auto) 0.6 Neut # (Auto) 6900 Lymph # (Auto) 2000 [place] # (Auto) 600 Eos # (Auto) 300 Baso # (Auto) 100 PT 10.1 INR 0.9 APTT 33 Sodium 140 Potassium 3.8 Chloride 105 Carbon Dioxide 28 BUN 15 Creatinine 0.92 Estimated GFR > 60 BUN/Creatinine Ratio 16.3 Glucose 91 Calcium 9.1 Total Bilirubin 0.6 AST 25 ALT 20 Alkaline Phosphatase 81 Total Protein 7.3 Albumin 4.3 Globulin 3.0 Albumin/Globulin Ratio 1.4 SARS-CoV-2 (PCR) Blood Type Antibody Screen 02/09/23 02/09/23 04:28 05:47 WBC RBC Hgb Hct MCV MCH MCHC RDW Plt Count Neut % (Auto) Lymph % (Auto) [place] % (Auto) Eos % (Auto) Baso % (Auto) Neut # (Auto) Lymph # (Auto) [place] # (Auto) Eos # (Auto) Baso # (Auto) PT INR APTT Sodium Potassium Chloride Carbon Dioxide BUN Creatinine Estimated GFR BUN/Creatinine Ratio Glucose Calcium Total Bilirubin AST ALT Alkaline Phosphatase Total Protein Albumin Globulin Albumin/Globulin Ratio SARS-CoV-2 (PCR) Negative Blood Type O Positive Antibody Screen Negative [facility] Social History household members: caregiver Tobacco & Substance Use Smoking Status: Never smoker alcohol intake: former Assessment & Plan Assessment and plan (1) Closed intertrochanteric fracture of right femur: Status: Acute Plan: Case has been reviewed by Dr Calderon, plan is for surgery (likely percutaneous pinning) later this evening. Discussed this with , who was in agreement. Pt is NPO, blood thinners held. Per radiology, appears to be an old, healed left femoral neck fx.
[2023-02-09] MEDS: HYDROMORPHONE 0.5 MG INJ IV (13:51)
[2023-02-09] MEDS: SODIUM CHLORIDE 0.9% 1,000 ML 75 ML IV (15:31)
--- NOTE | 2023-02-09 17:43 | PC.NURSE ---
Day shift: Pt alert only to birthday and name. Pt restless and confused, stating she wants to leave and I need to get out. Call light within reach, bed alarm active, curtain open and pt room close to nurse's station. Pt incontinent. Chicas catheter ordered by provider, chicas catheter placed. Urine malodorous. Sent for UA and culture per provider order. Pt medicated for pain with ordered pain medication per [facility] due to confusion. PACU RNs transported pt from acute care floor to Pre-op at approximately 1715.
[2023-02-09] MEDS: LACTATED RINGERS 1,000 ML 42 ML IV ×2 (17:49→20:03)
[2023-02-09 17:59] LABS: Appearance Urine UA TURBID; Bilirubin Urine UA NEGATIVE (NEGATIVE); Color Urine UA YELLOW; Glucose Urine UA NEGATIVE (Negative); Ketones Urine UA NEGATIVE (NEGATIVE); Leukocyte Esterase Urine UA 3+ (NEGATIVE); Nitrite Urine UA POSITIVE (Negative); Occult Blood Urine UA 3+ (Negative); Protein Urine UA 1+ (Negative); Urobilinogen Urine UA 0.2 E.U./dL (0.2)
[2023-02-09 18:13] LABS: Bacteria Urine Many (>30); Culture Indicated Urine Specimen Cultured; RBC Urine 5-10/HPF (0-5/HPF); Squamous Epithelial Cell Urine 1-5 /HPF (0-5/HPF); WBC Urine >100/HPF (0-5/HPF)
[2023-02-09] MEDS: CEFAZOLIN 2 GM/100 ML PREMIX 100 ML IV (18:50)
--- NOTE | 2023-02-09 19:24 | SUR.OPER ---
Lateral on padded OR bed. Gel axillary roll. Arms secured on padded armboard with pillow supporting top arm. Padded hip positioner braces x4 - anterior and posterior chest and pelvis. Additional gel pad used anterior pelvis. Gel pad under bottom leg from knee to foot and secured with tape over sheet.
[2023-02-09] MEDS: TRANEXAMIC ACID 1,000 MG VIAL 2000 MG INJ ×2 (19:25→20:53)
[2023-02-09] MEDS: BUPIVACAINE 0.25% (PF) 30 ML, EPINEPHrine 0.15 MG INJ (19:38)
--- NOTE | 2023-02-09 21:25 | P.OP_ITS ---
Operative Date/Time/Diagnoses Date of procedure: 02/09/23 Time of procedure: 19:00 Pre-op diagnosis: Right hip fracture, osteoporotic Dementia Post-op diagnosis: same Procedure & Clinicians Procedure: Hemiarthroplasty right hip, endoprosthetic fixation of right hip fracture Same procedure as scheduled: Yes Indications: Patient is a 67-year-old with severe dementia that sustained a ground level fall was found to have an osteoporotic right hip fracture. This was a basicervical femoral neck type variant fracture and displaced. There were conflicting reports this may be up to 2-day-old. The patient was indicated for endoprosthetic treatment of her right hip fracture to promote pain relief mobility and early weight-bearing reduce the comorbidities of prolonged immobilization. The risks and benefits of the procedure have been discussed with the patient's POA her Breezy and he was given the opportunity to ask questions. The risks of surgery include but are not limited to infection, fracture, dislocation, leg length discrepancy, persistence of pain, damage to nerves and blood vessels, posttraumatic arthritis, DVT, PE, cardiopulmonary complications and . The power of bit welder expressed a thorough understanding of the risks and benefits of surgery and has elected to proceed. Consent was signed. 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 Without a qualified press operator assistant being present this would extended the operative procedure and made the procedure technically more difficult to perform. Surgeon: Shruthi Calderon Study Coordinator: Maye Metz Anesthesia Type: General and Local Operative Notes Findings: Right, low femoral neck fracture Closure Type: primary Specimen(s): none sent Prosthetic devices, grafts, tissues, transplants, or devices: Baumann and nephew tandem unipolar Stem 14 cemented Standard neck size 0 Size 47 femoral head cobalt chromium 12 mm centralizer Estimated Blood Loss (mL): 150 Blood products transfused: none Tourniquet time (min): 0 Procedure in detail: Hemiarthroplasty for femoral neck fracture CPT code 43926. Patient was seen in the preoperative area the site of surgery was marked and informed consent confirmed. The patient was brought back to the operating room by the anesthesia team. Walter gusman was positioned supine on the operative table. General anesthetic was administered. Patient was then moved into the lateral position. The hip pump operator byproducts positioner pads were then placed. A well-padded axillary roll was placed and the arms were appropriately positioned. The affected lower extremity was prepped and draped from the ankle to the iliac crest with ChloraPrep in the standard fashion sterile drapes were placed. Formal time-out procedure was performed confirming the patient's side and site of surgery, presence of informed consent, administration of appropriate preoperative antibiotics. Hip was approached through a standard posterior approach. Dissection was carried down through the skin and subcutaneous tissues sharply through the skin and then with the Bovie through the subcutaneous tissues. The fascia michelle was exposed and opened. Fascia was opened using the Bovie and the gluteus raz was spread with finger retraction. The Charnley retractor was placed. The inflamed bursa was resected. The piriformis was then identified. A Cobra retractor was placed under the gluteus medius to help expose the external rotators. The piriformis and short external rotators were tagged with a 2 Ethibond and divided of the trochanter. These were then retracted posteriorly to protect sciatic nerve. The femur was then flexed and internally rotated to present the femoral neck and the fracture. Neck cut was made to create a wedge of neck to remove and then A corkscrew and a Mir were used to remove the femoral head from the acetabulum. This was measured to fit a 47 mm head on an equatorial fit. Next the femur was presented. Additional small bone fragments were removed. With the low neck fracture there was no additional cleanup lower neck cut needed. The trial head size was trialed in the acetabulum. Attention was then turned to the femur. The canal was opened with a box cutting osteotome. This followed by the canal finer and a lateralizing Reamer. The tapered reamers were then used up to a size 14. Then broaching was sequentially done up to a size 14. Trial components were placed. The patient was stable in the position of sleep, squatting and could be put through a range of motion with 70? of internal rotation without dislocation. Of note this patient has an adduction contracture and was very difficult to externally rotate or abduct much past neutral she goes to about 10?. Additionally with this deformed left hip she was preoperatively about 2 fingerbreadths of mine or 2-1/2 cm long on the fracture compared to the coxa varus side. Goal was to maintain this length as a stabilizer. Once we felt our stability was appropriate An intraop a AP pelvis x-ray was obtained to assess component position. Final components were then selected. The final stem was a size 14. Femoral canal was prepared . The distal small restrictor was placed approximately 1 cm distal to the end of the planned implant. The bone was meticulously cleaned with pulse lavage. Canal was then packed with gauze. Two packages of cement were mixed and carefully pressurized into the femoral canal. The femoral component was then placed without difficulty. This was held in place until the cement hardened. The repeat trial reduction showed good range of motion and stability. The final head and neck were then carefully placed. The wound was irrigated. The capsule and muscular flap was repaired with the 2. Ethibond. Next the short external rotators were repaired to the greater trochanter through drill holes in the greater trochanter using the 2.5 drill and a FloDesign Wind Turbineon suture Passer. These were tied with the leg in abduction. The wound was then irrigated again. The fascia michelle was closed with 0 Vicryl and the subcutaneous layer was closed with 2-0 Vicryl and the skin with alex. An Aquacel dressing was placed. An abduction pillow was placed for protection. The drapes removed and the patient was taken to the recovery room in good condition. There no immediate complications from this procedure. All counts were correct. Postoperative AP pelvis x-ray was obtained in the PACU showed appropriate alignment of the cemented hip hemiarthroplasty with no evidence of fracture. Complications: none Post-operative Condition: stable Disposition: PACU Plan for aftercare: Weightbear as tolerated. Posterior hip precautions for 6 weeks. Try to keep a pillow between the legs while in bed if she will tolerate. 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 Recommend Lovenox for DVT prophylaxis for 4 weeks.
--- NOTE | 2023-02-09 22:19 | PC.NURSE ---
Pt arrived from the OR to room #222 at 2215. Pt drowsy but opening eyes to voice. Legs contracted with pillow in between. Vieira in place, OTR REFRIGERATED CDL TRUCK DRIVER reports 300cc output during surgery. Right hip aquacel dsg c/d/i. RA at 97%
[2023-02-09] MEDS: LACTATED RINGERS 1,000 ML 100 ML IV (23:22)
[2023-02-10] VITALS (8 sets, daily range): BP systolic 94–117; BP diastolic 51–60; PULSE 72–103; RESP 12–24; TEMP 36.1–37.3; O2SAT 94–99
[2023-02-10] MEDS: HYDROMORPHONE 0.5 MG INJ IV ×7 (00:16→23:14)
[2023-02-10] MEDS: LORazepam 0.5 MG TABLET PO ×2 (00:24→18:02)
[2023-02-10] MEDS: CEFAZOLIN 2 GM/100 ML PREMIX 100 ML IV ×2 (03:05→10:29)
[2023-02-10 05:00] LABS: Add Manual Diff / Slide Review NO; Basophils Absolute Auto 0 /uL (0-100); Basophils Percent Auto 0.2 % (0-2); Eosinophils Absolute Auto 0 /uL (0-450); Eosinophils Percent Auto 0.1 % (2-4); Hematocrit 32.7 % (36-46); Hemoglobin 10.8 g/dL (12.0-16.0); Lymphocytes Absolute Auto 1100 /uL (1100-4500); Lymphocytes Percent Auto 8.5 % (25-40); Mean Corpuscular HGB Conc 33.1 % (30-36); Mean Corpuscular Hemoglobin 29.1 PG (26-34); Mean Corpuscular Volume 87.8 fL (80-100); Monocytes Absolute Auto 800 /uL (0-900); Monocytes Percent Auto 5.9 % (3-14); Neutrophils Absolute Auto 11200 /uL (1500-7000); Neutrophils Percent Auto 85.3 % (50-75); Platelet Count 199 X10^3/uL (150-400); Red Blood Cell Count 3.73 X10^6/uL (4.0-5.2); Red Cell Distribution Width 13.3 % (11.6-14.8); White Blood Cell Count 13.2 X10^3/uL (4.5-11.0)
[2023-02-10 05:06] LABS: BUN Creatinine Ratio 15.5 (6-22); Blood Urea Nitrogen 13 mg/dL (7-17); Calcium 7.9 mg/dL (8.4-10.2); Carbon Dioxide 29 mmol/L (22-32); Chloride 103 mmol/L (98-107); Estimated Glomerular Filt Rate > 60 mL/min (>60); Glucose 114 mg/dL (80-110); HEMOLYSIS < 15 (0-50); Potassium 4.3 mmol/L (3.4-5.1); Sodium 135 mmol/L (137-145)
--- NOTE | 2023-02-10 07:12 | PM.PNPO.1 ---
Subjective Subjective Date Patient Seen: 02/10/23 Time Patient Seen: 07:12 Interval history: Pt sleeping, easily arousable to voice. Minimally verbal. Does not appear to be uncomfortable. Exam Vital Signs (past 8 hours): - 02/10/23 00:05 02/10/23 01:20 02/10/23 05:03 Temperature 97.0 F L 97.4 F L 97.9 F Pulse Rate 72 79 95 H Respiratory Rate 17 12 17 Blood Pressure 105/59 L 94/51 L 100/52 L Pulse Oximetry 99 98 94 Oxygen Flow Rate 0 0 0 Oxygen Delivery Method Room Air Oxygen Flow Rate 0 Narrative Exam Narrative: Lying on left side, pillow between legs. Moves right foot to command. Right calf soft, compressible, no palpable cords or masses. Aquacel dressing CDI. Objective Labs 02/10/23 04:15 02/10/23 04:15 Labs: Laboratory Results - last 24 hr 02/09/23 02/10/23 02/10/23 14:50 04:15 04:15 WBC 13.2 H RBC 3.73 L Hgb 10.8 L Hct 32.7 L MCV 87.8 MCH 29.1 MCHC 33.1 RDW 13.3 Plt Count 199 Neut % (Auto) 85.3 H Lymph % (Auto) 8.5 L Leake % (Auto) 5.9 Eos % (Auto) 0.1 L Baso % (Auto) 0.2 Neut # (Auto) 90242 H Lymph # (Auto) 1100 [place] # (Auto) 800 Eos # (Auto) 0 Baso # (Auto) 0 Sodium 135 L Potassium 4.3 Chloride 103 Carbon Dioxide 29 BUN 13 Creatinine 0.84 Estimated GFR > 60 BUN/Creatinine Ratio 15.5 Glucose 114 H Calcium 7.9 L Urine Color Yellow Urine Appearance Turbid Urine pH 6.0 Ur Specific [place] 1.020 Urine Protein 1+ H Urine Glucose (UA) Negative Urine Ketones Negative Urine Occult Blood 3+ H Urine Nitrate Positive H Urine Bilirubin Negative Urine Urobilinogen 0.2 Ur Leukocyte Esterase 3+ H Urine RBC 5-10/hpf H Urine WBC >100/hpf H Ur Squamous Epith Cells 1-5 /hpf Urine Bacteria Many (>30) H Ur Culture Indicated? Specimen cultured PFSH Social History marital status: household members: caregiver Smoking Status: Never smoker alcohol intake: former Assessment & Plan Post-op Assessment and plan (1) Status post hip hemiarthroplasty: Assessment and Plan narrative: Weightbear as tolerated on right leg.? Posterior hip precautions for 6 weeks.? Try to keep a pillow between the legs while in bed if she will tolerate.? Recommend Lovenox for DVT prophylaxis for 4 weeks. Follow up w/ orthopedics in 2 weeks for wound check and repeat imaging. Postoperative Procedures: Procedures Operation Date: 02/09/23 18:00 Actual Procedure Side Surgeon p Hip Fx - cemented hemiarthroplasty lateral posterior Right Shruthi Calderon MD Postoperative day: 1 Quality VTE Deep Vein Thrombosis/Pulmonary Embolism Present on Admission: No
--- NOTE | 2023-02-10 07:37 | PM.PN.1 ---
Subjective Subjective Interval history: Patient sleeping currently and not awakened. Underwent hip surgery last night. Exam Vital Signs (past 8 hours): - 02/10/23 00:05 02/10/23 01:20 02/10/23 05:03 Temperature 97.0 F L 97.4 F L 97.9 F Pulse Rate 72 79 95 H Respiratory Rate 17 12 17 Blood Pressure 105/59 L 94/51 L 100/52 L Pulse Oximetry 99 98 94 Oxygen Flow Rate 0 0 0 Oxygen Delivery Method Room Air Oxygen Flow Rate 0 Narrative Exam Narrative: GEN: no acute distress HEENT: moist mucous membranes, PERRL NECK: trachea midline, no jvd PULM: clear bilaterally, no wheezes, rhonchi, rales CV: regular rate and rhythm, no murmurs ABD: soft, nontender, nondistended, no organomegaly EXT: warm and well perfused with no edema, right hip postop dressing in place NEURO: sleeping, no focal deficits Objective Labs 02/10/23 04:15 02/10/23 04:15 Labs: Laboratory Results - last 24 hr 02/09/23 02/10/23 02/10/23 14:50 04:15 04:15 WBC 13.2 H RBC 3.73 L Hgb 10.8 L Hct 32.7 L MCV 87.8 MCH 29.1 MCHC 33.1 RDW 13.3 Plt Count 199 Neut % (Auto) 85.3 H Lymph % (Auto) 8.5 L [place] % (Auto) 5.9 Eos % (Auto) 0.1 L Baso % (Auto) 0.2 Neut # (Auto) 34203 H Lymph # (Auto) 1100 [place] # (Auto) 800 Eos # (Auto) 0 Baso # (Auto) 0 Sodium 135 L Potassium 4.3 Chloride 103 Carbon Dioxide 29 BUN 13 Creatinine 0.84 Estimated GFR > 60 BUN/Creatinine Ratio 15.5 Glucose 114 H Calcium 7.9 L Urine Color Yellow Urine Appearance Turbid Urine pH 6.0 Ur Specific [place] 1.020 Urine Protein 1+ H Urine Glucose (UA) Negative Urine Ketones Negative Urine Occult Blood 3+ H Urine Nitrate Positive H Urine Bilirubin Negative Urine Urobilinogen 0.2 Ur Leukocyte Esterase 3+ H Urine RBC 5-10/hpf H Urine WBC >100/hpf H Ur Squamous Epith Cells 1-5 /hpf Urine Bacteria Many (>30) H Ur Culture Indicated? Specimen cultured PFS Social History marital status: household members: caregiver Smoking Status: Never smoker alcohol intake: former Assessment & Plan Assessment & Plan narrative: 1. Acute hip fracture s/p arthroplasty -notable from fall, probably mechanical -has displaced intratrochanteric right hip fracture -underwent hip repair with Dr. Calderon on 5/4 -pain medications ordered -PT eval for likely SNF 2. Dementia -lives at [facility], no behavioral issues -head CT negative -patient at baseline per and not oriented CODE: DNR per Proxy: Breezy Nicole, Dispo: Pending PT eval for likely SNF. Quality VTE Deep Vein Thrombosis/Pulmonary Embolism Present on Admission: No
[2023-02-10] MEDS: LACTATED RINGERS 1,000 ML 100 ML IV (09:01)
[2023-02-10] MEDS: CITALOPRAM 10 MG TABLET PO (09:32)
[2023-02-10] MEDS: ENOXAPARIN 40 MG/0.4 ML SYRINGE SUBCUT (09:32)
[2023-02-10] MEDS: DOCUSATE 100 MG CAPSULE PO (09:32)
--- NOTE | 2023-02-10 11:36 | PT-IP ANOTE ---
Attempted to see patient, nursing reported patient did not tolerate movement of LE's in bed even after receiving dilaudid. Next pain med dose will be around 1300, will attempt another visit after meds given.
--- NOTE | 2023-02-10 12:43 | CM.DPC ---
Addendum entered by DAVID Caraballo 02/10/23 14:59: ADD: Doreen at [facility] states likely could accept pt but will review PT/OT from today but will tentatively put pt on their schedule for admit Monday unless pt has significant behaviors etc.. [facility], [facility], and [facility] still have referral and reviewing. BF Addendum entered by DAVID Caraballo 02/10/23 14:38: ADD: Per PT/OT, was able to work with pt to sit at edge of bed with some pain and discomfort but tolerable and pt was able to participate and no behaviors and feel pt would benefit from SNF for daily therapies to strengthen and heal as she is quite below baseline. SW met bedside with pt and spouse, pt sleeping, and explained role and he confirms he is still agreeable with SNF and aware her dementia a barrier and discussed Medicare coverage of SNF and spouse plans to hold/pay for pt's bed at [facility] for the month so that they don't lose it. Spouse has Medicare SNF Choice list and no real preference for SNF but aware [facility] might be likely option since they are on the same campus as [facility] but also agreeable with all other [facility] SNF referrals. SHIRA Flores kindly faxed PT/OT notes to [facility] and then full referrals to [facility], [facility], [facility], and [facility]. Plan: SW to follow closely for SNF reviews towards attempting to secure SNF for pt before return to [facility]. BF Original Note: DCP Cont: Per MD, pt's urine culture did show UTI and being treated. Per Ortho, WBAT for 6 weeks and to work with PT/OT. Per RN, pt has been 1:1 due to dementia and pt impulsive with forgetting hip precautions and supportive spouse visits pt regularly. Per PT, attempted to see pt but significant pain and will try again later today planned around her dose of dilaudid. SW called [facility] admissions Doreen and updated on pt and she is somewhat aware of pt and that she lives at [facility] and has dementia. SW faxed initial clinicals to review although no PT/OT notes available yet. PASRR previously completed. SW has not made any additional SNF referrals yet as they will want to confirm she can participate with therapies so waiting for afternoon attempt by PT/OT. Plan: SW to follow closely for PT/OT eval this afternoon towards determining SNF vs return to [facility] and pt's dementia could be a barrier to SNF. DAVID Caraballo
--- NOTE | 2023-02-10 14:47 | OT.IP.EVAL ---
Current Diagnoses Unspecified dementia, unspecified severity, without behavioral disturbance, psychotic disturbance, mood disturbance, and anxiety (02/09/23) Age-related osteoporosis with current pathological fracture, unspecified femur, initial encounter for fracture (02/09/23) Fracture of unspecified part of neck of right femur, initial encounter for closed fracture (02/09/23) Displaced intertrochanteric fracture of right femur, initial encounter for closed fracture (02/09/23) Unspecified fall, initial encounter (02/09/23) Presence of unspecified artificial hip joint (02/09/23) Surgery Performed Operation Date: 02/09/23 18:00 Actual Procedures p Hip Fx - cemented hemiarthroplasty lateral posterior(Right) - Shruthi Calderon MD Occupational Therapy Inpatient Evaluation/Re-Eval M1 PT/OT-IP Prior Functional Status Start: 02/10/23 14:20 Freq: NEEDED Status: Active Protocol: Document 02/10/23 13:45 [facility] (Rec: 02/10/23 14:47 [facility] [id number]) Medical Review Prior Functional Status Communication Pt's states pt has dementia and 13 months ago starting not to recognize him anymore. Mobility and Gait Per pt's has been able to get herself to the wc/bed on her own and mobilize in the WC with her feet/ arms. Activities of Daily Living and IADL's Pt's states pt tends to refuse care and tries to do ADl's on her own and will have her clothing on backwards , or not on all the way. HOwever pt has only been at [facility] for 2 months. Social History Household Members caregiver Living Arrangements Assisted Living M2 OT-IP Current Condition Start: 02/10/23 14:20 Freq: Status: Active Protocol: Document 02/10/23 13:45 [facility] (Rec: 02/10/23 14:47 [facility] [id number]) Occupational Therapy Current Condition Current Condition Evaluation Date 02/10/23 Treatment Diagnosis R ANTIONETTE Diagnosis Onset Date 02/09/23 M3 OT- IP Subjective and Pain Start: 02/10/23 14:20 Freq: Status: Active Protocol: Document 02/10/23 13:45 [facility] (Rec: 02/10/23 14:47 [facility] [id number]) OT- Subjective Occupational Therapy Visit Type Type Initial Evaluation Visit Start Time 13:45 Visit Stop Time 14:16 Total Visit Minutes 31 Occupational Therapy Visit Comments Patient Comments Pt asleep and just receiving pain medication and agreed for therapy to try to get the pt up to the edge of the bed. Patient/Caregiver Goals Pt not able to states at this time due to dementia. OT Pain Assessment Pain When Pain Assessed During Mobility Pain Present Pain Present Denied Pain Location right hip Pain Behaviors Calling Out,Facial Grimacing, Guarding,Holding Area,Moaning, Wincing M4 OT- IP ADL's Start: 02/10/23 14:20 Freq: Status: Active Protocol: Document 02/10/23 13:45 [facility] (Rec: 02/10/23 14:47 [facility] [id number]) OT [id number] Comments OT Self-Feeding Comments Not at meal time. OT ADL-Grooming General Evaluation Grooming Ability Maximum Assistance Comments OT Grooming Comments Pt not able to wash her face after set-up of wash cloth in her hand. OT ADL-Oral Care Comments Oral Care Comments Not performed. OT ADL-Dressing General Eval Lower Body Dressing Ability Total Assistance Comments OT Dressing Comments Pt requesting to have underwear on MAXa/TotalA to roll side to side. Pt trying to reach down to assist. OT ADL-Toileting General Evaluation Toileting Ability Total Assistance Comments OT Toileting Comments Vieira in place OT ADL-Bathing Bathing Type Bathing Type Bed Bath Comments OT Bathing Comments Sponge bath more appropriate at this time. M5 OT- IP IADL's Start: 02/10/23 14:20 Freq: Status: Active Protocol: Document 02/10/23 13:45 [facility] (Rec: 02/10/23 14:47 [facility] [id number]) OT-Instrumental Activities of Daily Living Deficits IADL Deficits Identified Deficits Home Safety Awareness Awareness of Need for Assistance at Home Decreased Awareness Ability to Problem Solve Emergency Unable to Problem Solve Situations Home Safety Comments Pt has dementia and needing assist for all needs at this time. Medication Management Medication Management Caregiver Administers Money Management Money Management Caregiver Provides Assistance Meal Preparation Meal Preparation Caregiver Provides Assist National Sales Representative National Sales Representative Caregiver Provides Assist M6 OT- IP Functional Cognition Start: 02/10/23 14:20 Freq: Status: Active Protocol: Document 02/10/23 13:45 [facility] (Rec: 02/10/23 14:47 [facility] [id number]) Cognitive Factors Limiting Selfcare Function Cognitive Ability Level of Alertness Alert,Confusional State Patient Orientation Name Attention Span Ability Capable of Focused Attention, Unable to Focus Ability to Follow Commands Able to Follow One Step Commands with Increased Time, Able to Follow One Step Commands with Repetition Memory Description Short Term Impaired,Supervisor Inspection Impaired,Working Impaired Safety Awareness Decreased Recall of Precautions,Decreased Ability to Apply Precautions Cognitive Comments Cognitive Assessment Comments Pt able to respond to her name , and able to request wanting to wear underwear at this time . Pt needing step by step concrete simple cues to follow . M7 OT- IP Mobility and Balance Start: 02/10/23 14:20 Freq: Status: Active Protocol: Document 02/10/23 13:45 [facility] (Rec: 02/10/23 14:47 [facility] [id number]) OT- Bed Mobility Assessment Rolling Level of Assistance Total Assistance,2 Person Assistance Supine to Sit Supine to Sit Assist Total Assistance,2 Person Assistance Sit to Supine Sit to Supine Assist Total Assistance,2 Person Assistance Scooting Scooting to Edge of Bed Total Assistance,2 Person Assistance OT-Transfer Assessment Comments Mobility Comments Total assist x2 and use of green pad to assist to help move her trunk and BLE so pt able to get to the edge of the bed. Pt able to sit up with MAXA of therapist behind her to assist for balance and at times total assist. OT- Gait Assessment Comments Gait Ability Comments Pt not able to do at this time OT- Balance Assessment Sitting Balance and Reactions Static Sitting Balance Ability Poor Dynamic Sitting Balance Ability Poor M8 OT- IP Objective Assessments Start: 02/10/23 14:20 Freq: Status: Active Protocol: Document 02/10/23 13:45 [facility] (Rec: 02/10/23 14:47 [facility] [id number]) OT Gross Range of Motion Upper Extremity Range of Motion ROM Impairments Not able to fully assess due to pt's decreased ability to follow commands. Pt however able to move both arms against gravity and able to pull the pillow out between her legs. OT Strength Comments Strength Comments Pt at least 3-/5 for BUE. OT-Muscle Tone Assessment Muscle Tone WNL Yes M9 OT- IP Assessment and Plan Start: 02/10/23 14:20 Freq: Status: Active Protocol: Document 02/10/23 13:45 [facility] (Rec: 02/10/23 14:47 [facility] [id number]) OT Summary Assessment and Plan Potential Rehabilitation Potential Fair Analytic Complexity at Evaluation High Summary OT Impairments Pain,Range of Motion,Strength, Balance,Functional Cognition, Functional Mobility,Self- Feeding,Grooming,Dressing, Toileting,Bathing,Toilet Transfers,Shower Transfers, Activity Tolerance Progress Towards Goals Slow Progress due to Pain,Slow Progress due to Medical Issues,Slow Progress due to Activity Tolerance,Slow Progress due to Cognition Assessment Summary Pt High complexity and main barriers are pain, decreased activity tolerance, ability to follow commands due to recent hip sx in addition to her dementia. Prior pt's states was able to transfer on her own and get herself dressed but with decreased orientation and completeness. Pt would greatly benefit from skilled rehab to maximize her independence with her ADL and mobility needs. Pt able to participate in the bed mobility today after just having pain medications. Goals Self-Feeding Goal Standby Assistance Grooming Goal Standby Assistance Dressing Goal Minimal Assistance Toileting Goal Minimal Assistance Bathing Goal Moderate Assistance Toilet Transfer Goal Moderate Assistance Shower Transfer Goal Moderate Assistance Days to Meet Goals 40 Frequency of Treatment Frequency Of Treatment Once a Day Treatment Plan OT Treatment Plan ADL Training,Functional Mobility,Patient/Family Education,Discharge Planning Other Treatment Recommendations and [facility] MAXAx2 Discharge Recommendations OT Discharge Recommendations SNF Rehab Transportation Needs at Discharge Stretcher/Ambulance
--- NOTE | 2023-02-10 14:50 | PT.IIE ---
Current Diagnoses Unspecified dementia, unspecified severity, without behavioral disturbance, psychotic disturbance, mood disturbance, and anxiety (02/09/23) Age-related osteoporosis with current pathological fracture, unspecified femur, initial encounter for fracture (02/09/23) Fracture of unspecified part of neck of right femur, initial encounter for closed fracture (02/09/23) Displaced intertrochanteric fracture of right femur, initial encounter for closed fracture (02/09/23) Unspecified fall, initial encounter (02/09/23) Presence of unspecified artificial hip joint (02/09/23) Surgery Performed Operation Date: 02/09/23 18:00 Actual Procedures p Hip Fx - cemented hemiarthroplasty lateral posterior(Right) - Shruthi Calderon MD Physical Therapy Inpatient Evaluation/Re-Eval M1 PT/OT-IP Prior Functional Status Start: 02/10/23 14:20 Freq: NEEDED Status: Active Protocol: Document 02/10/23 14:22 [facility] (Rec: 02/10/23 14:50 [facility] [id number]) Medical Review Prior Functional Status Medical History Reviewed Yes Mobility and Gait stated patient used a w/c and was able to propel self independently, and was able to transfer in/out of w/c without assistance but that it's is likely how she fell. Up until a couple months ago, she was using a w/c downstairs and walker upstairs at home but was getting weaker so transitioned to full-time w/c. Activities of Daily Living and IADL's Assist with all ADL's. Social History Household Members caregiver Living Arrangements Assisted Living Home Equipment Manual Wheelchair Additional Social History Comment Patient has been a resident of [facility] in the memory care unit for the past 2 months. M2 PT-IP Current Condition Start: 02/10/23 14:21 Freq: NEEDED Status: Active Protocol: Document 02/10/23 14:22 [facility] (Rec: 02/10/23 14:50 [facility] [id number]) Physical Therapy Current Condition Current Condition Evaluation Date 02/10/23 Treatment Diagnosis S/p kassy ANTIONETTE, endoprosthetic fixation of R hip fracture 2/ GLF Onset Date 02/09/23 M3 PT-IP Subjective Start: 02/10/23 14:21 Freq: NEEDED Status: Active Protocol: Document 02/10/23 14:22 [facility] (Rec: 02/10/23 14:50 [facility] [id number]) Subjective Physical Therapy Visit Type Type Initial Evaluation Visit Start Time 13:45 Visit Stop Time 14:12 Total Visit Minutes 27 Notes OT present Physical Therapy Visit Comments Patient Comments Patient sleeping in bed, easily wakened. present to provide history. Patient confused. Therapy Pain Assessment Pain When Pain Assessed During Mobility Pain Present Pain Present Pain Reported Location right hip Description With Movement Pain Behaviors Calling Out,Guarding,Holding Area,Restlessness Pain Management Techniques Re-positioning,Timing of Activity with Medications M4 PT-IP Mobility and Gait Start: 02/10/23 14:21 Freq: NEEDED Status: Active Protocol: Document 02/10/23 14:22 [facility] (Rec: 02/10/23 14:50 ES [id number]) PT-Bed Mobility Assessment Rolling Type of Rolling Bilateral Level of Assist Maximal Assistance,2 Person Assistance Supine to Sit Supine to Sit Total Assistance,2 Person Assistance Sit to Supine Sit to Supine Total Assistance,2 Person Assistance Scooting Scooting to Edge of Bed Dependent Scooting Up and Down in Bed Dependent PT-Transfer Assessment Comments Mobility Comments Did not attempt transfer at this time due to patient fatigue and increased pain with sitting. She would require a lift at her current level of function. Gait Assessment Comments Gait Comments Unable; non-ambulatory at baseline. PT-Balance Assessment Sitting Balance and Reactions Static Sitting Balance Ability Poor Dynamic Sitting Balance Ability Poor Comments Other Balance Tests/Deviations/Treatment Required max A for sitting due : to confusion and pain. She demonstrated sufficient tone in her trunk to be able to sit unsupported. M5 PT-IP Objective Assessments Start: 02/10/23 14:21 Freq: NEEDED Status: Active Protocol: Document 02/10/23 14:22 [facility] (Rec: 02/10/23 14:50 ES [id number]) Orientation Orientation/Cognition Level of Alertness Confusional State Safety Awareness Decreased Safety Awareness Memory Description Short Term Impaired,Retirement Impaired Comments Inconsistently followed 1-step commands. Gross Range of Motion Upper Extremity ROM Assessment Within Functional Limits Lower Extremity ROM Assessment Bilaterally Impaired Impairments Hip flexion and adduction contractures and knee flexion contractures present. Strength Comments Strength Comments Unable to formally assess; able to move all limbs against gravity M7 PT-IP Assessment and Plan Start: 02/10/23 14:21 Freq: NEEDED Status: Active Protocol: Document 02/10/23 14:22 [facility] (Rec: 02/10/23 14:50 ES [id number]) PT Summary Assessment and Plan Potential Rehabilitation Potential Fair Status of Condition at Evaluation Evolving Summary Impairments Pain,ROM,Strength,Balance, Cognition,Bed Mobility, Transfers,Gait Assessment Summary Patient is a 67 year old female with hx of severe dementia who sustained GLF resulting in R hip fracture, referred to PT s/p kassy ANTIONETTE. She was able to participate in eval, though required 2- person max A for bed mobility and sitting EOB due to confusion, pain, and difficulty following instructions. She displayed symptoms of pain though was able to redirect and did not seem severe. Pain meds had been given prior to treatment. Patient became somewhat agitated toward end of session , likely due to fatigue and increased pain. She was able to be repositioned in bed with 2-person assist with pillow between knees and cushion under coccyx. Patient will require increased level of care at d/c; recommend SNF for further rehab to increase independence with mobility and reduce risk of functional decline. She will benefit from further therapy during hospitalization to progress her mobility and assess d/c needs. Goals Bed Mobility Goal Minimal Assistance Transfer Goal Minimal Assistance Other Goals Patient will be able to perform squat pivot transfer bed to/from w/c with min A. Patient will be able to propel self in w/c with supervision x50 ft. Days to Meet Goals 14 Frequency of Treatment Frequency Of Treatment Twice a Day Treatment Plan Physical Therapy Treatment Plan Bed Mobility Training,Transfer Training,Therapeutic Exercise ,Balance Retraining,Post Op Education,Discharge Planning, Hot or Cold Pack,Neuromuscular Re-ed,Manual Therapy Precautions Posterior Hip Precautions No Hip Flexion > 90 degrees,No Hip Internal Rotation,No Hip Adduction Other Precautions Posterior hip precautions x6 weeks Weight Bearing Status Weight Bearing Status Weight Bear as Tolerated Recommendations To Nursing Amount of Assist Needed 2 Person Assist,Total Assistance Discharge Recommendations PT Discharge Recommendations SNF Rehab Transportation Needs at Discharge Stretcher/Ambulance
[2023-02-10] MEDS: cefTRIAXone 1,000 MG in SODIUM CHLORIDE 0.9% 100 ML 200 MG IV (17:33)
[2023-02-10] MEDS: HALOPERIDOL 5 MG/ML VIAL 2 MG IV (21:11)
--- NOTE | 2023-02-10 21:38 | PC.NURSE ---
Patient becoming very agitated trying to pull alex out of hip incision. Dr. Godfrey called and new orders noted. Attempted to give seroquel, but taking pill and throwing it. Medicated with haldol slow iv and patient slowly relaxing.
[2023-02-11] VITALS (7 sets, daily range): BP systolic 110–148; BP diastolic 49–55; PULSE 89–122; RESP 14–18; TEMP 36.3–37.1; O2SAT 93–97
[2023-02-11] MEDS: HYDROMORPHONE 0.5 MG INJ IV ×7 (01:59→21:32)
[2023-02-11] MEDS: HALOPERIDOL 5 MG/ML VIAL 2 MG IV ×3 (03:25→17:05)
[2023-02-11 05:52] LABS: Add Manual Diff / Slide Review NO; Basophils Absolute Auto 0 /uL (0-100); Basophils Percent Auto 0.1 % (0-2); Eosinophils Absolute Auto 0 /uL (0-450); Eosinophils Percent Auto 0.4 % (2-4); Hemoglobin 10.1 g/dL (12.0-16.0); Lymphocytes Absolute Auto 1600 /uL (1100-4500); Lymphocytes Percent Auto 13.9 % (25-40); Mean Corpuscular HGB Conc 33.7 % (30-36); Mean Corpuscular Hemoglobin 29.4 PG (26-34); Mean Corpuscular Volume 87.2 fL (80-100); Monocytes Absolute Auto 900 /uL (0-900); Monocytes Percent Auto 7.7 % (3-14); Neutrophils Absolute Auto 8800 /uL (1500-7000); Neutrophils Percent Auto 77.9 % (50-75); Platelet Count 186 X10^3/uL (150-400); Red Blood Cell Count 3.44 X10^6/uL (4.0-5.2); Red Cell Distribution Width 13.2 % (11.6-14.8); White Blood Cell Count 11.4 X10^3/uL (4.5-11.0)
[2023-02-11 06:11] LABS: BUN Creatinine Ratio 13.5 (6-22); Blood Urea Nitrogen 10 mg/dL (7-17); Calcium 7.9 mg/dL (8.4-10.2); Carbon Dioxide 27 mmol/L (22-32); Chloride 98 mmol/L (98-107); Estimated Glomerular Filt Rate > 60 mL/min (>60); Glucose 117 mg/dL (80-110); HEMOLYSIS < 15 (0-50); Potassium 3.5 mmol/L (3.4-5.1); Sodium 131 mmol/L (137-145)
[2023-02-11] MEDS: LACTATED RINGERS 1,000 ML 100 ML IV ×2 (08:20→21:22)
[2023-02-11] MEDS: ENOXAPARIN 40 MG/0.4 ML SYRINGE SUBCUT (08:20)
[2023-02-11] MEDS: LORazepam 0.5 MG TABLET PO ×2 (08:21→15:37)
[2023-02-11] MEDS: DOCUSATE 100 MG CAPSULE PO (08:22)
[2023-02-11] MEDS: CITALOPRAM 10 MG TABLET PO (08:22)
--- NOTE | 2023-02-11 09:13 | P.PN_ITS ---
Subjective Subjective Interval history: Main complaint being thirsty. Wants to drink more water. Feels her water cup for her. Patient very drowsy and does not appear that she has enough cognition to eat her breakfast. Able to manage drinking from a straw. Exam Vital Signs (past 8 hours): - 02/11/23 05:46 Temperature 98.8 F Pulse Rate 89 Respiratory Rate 16 Blood Pressure 110/51 L Pulse Oximetry 93 Oxygen Flow Rate 0 Oxygen Delivery Method Room Air Oxygen Flow Rate 0 Narrative Exam Narrative: GEN: no acute distress, patient drowsy. HEENT: moist mucous membranes, PERRL NECK: trachea midline, no jvd PULM: clear bilaterally, no wheezes, rhonchi, rales CV: regular rate and rhythm, no murmurs ABD: soft, nontender, nondistended, no organomegaly EXT: warm and well perfused with no edema, right hip postop with wound appearing clean and dry. [place] in place. NEURO: no focal deficit, readily apparent dementia Objective Labs 02/11/23 05:01 02/11/23 05:01 Labs: Laboratory Results - last 24 hr 02/11/23 02/11/23 05:01 05:01 WBC 11.4 H RBC 3.44 L Hgb 10.1 L Hct 30.0 L MCV 87.2 MCH 29.4 MCHC 33.7 RDW 13.2 Plt Count 186 Neut % (Auto) 77.9 H Lymph % (Auto) 13.[address] [place] % (Auto) 7.7 Eos % (Auto) 0.4 L Baso % (Auto) 0.1 Neut # (Auto) 8800 H Lymph # (Auto) 1600 [place] # (Auto) 900 Eos # (Auto) 0 Baso # (Auto) 0 Sodium 131 L Potassium 3.5 Chloride 98 Carbon Dioxide 27 BUN 10 Creatinine 0.74 Estimated GFR > 60 BUN/Creatinine Ratio 13.5 Glucose 117 H Calcium 7.9 L PFSH Social History marital status: household members: caregiver Smoking Status: Never smoker alcohol intake: former Assessment & Plan Assessment & Plan narrative: 1. Acute hip fracture s/p right hip hemiarthroplasty -notable from fall, probably mechanical - intratrochanteric right hip fracture on presentation -underwent right hip hemiarthroplasty with Dr. Calderon on 5/4 -pain medications ordered -PT eval for likely SNF 2. Dementia -lives at [facility], no behavioral issues -head CT negative -patient at baseline per and not oriented 3. UTI with E coli, goodwin sensitivity -3 doses of ceftriaxone 1 g IV daily have been ordered previously. Follow labs and clinically. CODE: DNR per Proxy: Breezy Nicole, Dispo: Pending PT eval for likely SNF. Quality VTE Deep Vein Thrombosis/Pulmonary Embolism Present on Admission: No
--- NOTE | 2023-02-11 09:41 | P.PN_ITS ---
Subjective Subjective Date Patient Seen: 02/11/23 Time Patient Seen: 09:41 Interval history: Postop day 2 right hemiarthroplasty for fracture Patient with severe dementia at baseline. Minimally ambulatory. Mostly wheelchair-bound. Has a chronic posttraumatic arthritis and deformity left hip. Has been restless 1 on 1 nursing Exam Vital Signs (past 8 hours): - 02/11/23 05:46 Temperature 98.8 F Pulse Rate 89 Respiratory Rate 16 Blood Pressure 110/51 L Pulse Oximetry 93 Oxygen Flow Rate 0 Oxygen Delivery Method Room Air Oxygen Flow Rate 0 Narrative Exam Narrative: Lying in bed. Awake. Lying with hips flexed under internal rotation. Pillows between the legs. Is seen to demonstrate dorsiflexion plantar flexion of the foot. Aquacel dressing is wrinkled and off of the incision. Incision with alex intact. No bleeding. No erythema. Area is cleansed and new dressing replaced. Patient moans with repositioning but does not seem to be in severe pain. She has a M epilex dressing on her sacrum and a heel protector on her left foot. We replaced the heel protector on her right foot. She is eating breakfast and drinking water out of a water bottle. Objective Labs 02/11/23 05:01 02/11/23 05:01 Labs: Laboratory Results - last 24 hr 02/11/23 02/11/23 05:01 05:01 WBC 11.4 H RBC 3.44 L Hgb 10.1 L Hct 30.0 L MCV 87.2 MCH 29.4 MCHC 33.7 RDW 13.2 Plt Count 186 Neut % (Auto) 77.9 H Lymph % (Auto) 13.9 L [place] % (Auto) 7.7 Eos % (Auto) 0.4 L Baso % (Auto) 0.1 Neut # (Auto) 8800 H Lymph # (Auto) 1600 [place] # (Auto) 900 Eos # (Auto) 0 Baso # (Auto) 0 Sodium 131 L Potassium 3.5 Chloride 98 Carbon Dioxide 27 BUN 10 Creatinine 0.74 Estimated GFR > 60 BUN/Creatinine Ratio 13.5 Glucose 117 H Calcium 7.9 L PFSH Social History marital status: household members: caregiver Smoking Status: Never smoker alcohol intake: former Assessment & Plan Post-op Postoperative Procedures: Procedures Operation Date: 02/09/23 18:00 Actual Procedure Side Surgeon p Hip Fx - cemented hemiarthroplasty lateral posterior Right Shruthi Calderon MD Postoperative day: 2 Postoperative status: doing well Postoperative status narrative: Well. Hospital course complicated by severe dementia. Postoperative plan narrative: Weightbear as tolerated right lower extremity. Try to keep a pillow between the legs and knees while in bed. And tried to abide by posterior hip precautions as best as possible with underlying dementia for the 1st 6 weeks after surgery. Follow-up in 2 weeks for staple removal. Lovenox for DVT prophylaxis Time Spent With Patient Time with patient: less than 15 minutes Quality VTE Deep Vein Thrombosis/Pulmonary Embolism Present on Admission: No
--- NOTE | 2023-02-11 10:32 | PT.IPTN ---
Current Diagnoses Unspecified dementia, unspecified severity, without behavioral disturbance, psychotic disturbance, mood disturbance, and anxiety (02/09/23) Age-related osteoporosis with current pathological fracture, unspecified femur, initial encounter for fracture (02/09/23) Fracture of unspecified part of neck of right femur, initial encounter for closed fracture (02/09/23) Displaced intertrochanteric fracture of right femur, initial encounter for closed fracture (02/09/23) Unspecified fall, initial encounter (02/09/23) Presence of unspecified artificial hip joint (02/09/23) Surgery Performed Operation Date: 02/09/23 18:00 Actual Procedures p Hip Fx - cemented hemiarthroplasty lateral posterior(Right) - Shruthi Calderon MD Physical Therapy Treatment Note M2 PT-IP Current Condition Start: 02/10/23 14:21 Freq: NEEDED Status: Active Protocol: Document 02/10/23 14:22 ES (Rec: 02/10/23 14:50 ES [id number]) Physical Therapy Current Condition Current Condition Evaluation Date 02/10/23 Treatment Diagnosis S/p kassy ANTIONETTE, endoprosthetic fixation of R hip fracture 2/ GLF Onset Date 02/09/23 M3 PT-IP Subjective Start: 02/10/23 14:21 Freq: NEEDED Status: Active Protocol: Document 02/11/23 10:23 ES (Rec: 02/11/23 10:32 ES [id number]) Subjective Physical Therapy Visit Type Type Treatment Note Visit Start Time 09:50 Visit Stop Time 10:21 Total Visit Minutes 31 Number of PATIENT CARE PROVIDER Visits 0 Physical Therapy Visit Comments Patient Comments Patient sleeping when PT entered room, easily woken. Patient more alert and able to answer some questions. Patient endorsed pain with movement. Therapy Pain Assessment Pain When Pain Assessed During Mobility Pain Present Pain Present Pain Reported Location right hip Description With Movement Pain Behaviors Calling Out,Guarding Pain Management Techniques Re-positioning,Timing of Activity with Medications M4 PT-IP Mobility and Gait Start: 02/10/23 14:21 Freq: NEEDED Status: Active Protocol: Document 02/11/23 10:23 ES (Rec: 02/11/23 10:32 ES [id number]) PT-Bed Mobility Assessment Rolling Type of Rolling Bilateral Level of Assist Moderate Assistance,2 Person Assistance Supine to Sit Supine to Sit Maximum Assistance,2 Person Assistance,Head of Bed Elevated,Bedrails Sit to Supine Sit to Supine Maximum Assistance,2 Person Assistance,Bedrails Scooting Scooting to Edge of Bed Moderate Assistance Scooting Up and Down in Bed Dependent Gait Assessment Comments Gait Comments Unable; non-ambulatory at baseline. PT-Balance Assessment Sitting Balance and Reactions Static Sitting Balance Ability Fair Dynamic Sitting Balance Ability Poor Comments Other Balance Tests/Deviations/Treatment Patient sat EOB for ~5 minutes : using UE support with occasional min A and with tactile cues to avoid hip flexion >90 degrees. M5 PT-IP Objective Assessments Start: 02/10/23 14:21 Freq: NEEDED Status: Active Protocol: Document 02/10/23 14:22 ES (Rec: 02/10/23 14:50 ES [id number]) Orientation Orientation/Cognition Level of Alertness Confusional State Safety Awareness Decreased Safety Awareness Memory Description Short Term Impaired,Usp Impaired Comments Inconsistently followed 1-step commands. Gross Range of Motion Upper Extremity ROM Assessment Within Functional Limits Lower Extremity ROM Assessment Bilaterally Impaired Impairments Hip flexion and adduction contractures and knee flexion contractures present. Strength Comments Strength Comments Unable to formally assess; able to move all limbs against gravity M6 PT-IP Treatment Start: 02/10/23 14:21 Freq: NEEDED Status: Active Protocol: Document 02/11/23 10:23 ES (Rec: 02/11/23 10:32 ES [id number]) Physical Therapy Treatment Other Treatments Other Treatment Performed Performed some manual stretching L hip and knee extension to tolerance to increase available range for mobility. Attempted R hip and knee extension but not well tolerated due to pain. M7 PT-IP Assessment and Plan Start: 02/10/23 14:21 Freq: NEEDED Status: Active Protocol: Document 02/11/23 10:23 ES (Rec: 02/11/23 10:32 ES [id number]) PT Summary Assessment and Plan Potential Rehabilitation Potential Fair Status of Condition at Evaluation Evolving Summary Impairments Pain,ROM,Strength,Balance, Cognition,Bed Mobility, Transfers,Gait Progress Towards Goals Slow Progress due to Pain,Slow Progress - Other Assessment Summary Patient required decreased assistance for bed level exercise this visit, with improved alertness and ability to follow commands. Patient continues to be a 2-person assist due to high fall risk and confusion. She will continue to benefit from skilled therapy to progress mobility and maximize independence. Continue to recommend SNF for further rehab vs [facility] with increased assistance and HHPT. Goals Bed Mobility Goal Minimal Assistance Transfer Goal Minimal Assistance Other Goals Patient will be able to perform squat pivot transfer bed to/from w/c with min A. Patient will be able to propel self in w/c with supervision x50 ft. Days to Meet Goals 14 Frequency of Treatment Frequency Of Treatment Twice a Day Treatment Plan Physical Therapy Treatment Plan Bed Mobility Training,Transfer Training,Therapeutic Exercise ,Balance Retraining,Post Op Education,Discharge Planning, Hot or Cold Pack,Neuromuscular Re-ed,Manual Therapy Other Recommendations and Next Treatment LE ROM ex's as tolerated, Focus sitting tolerance/balance, eventual goal of transfer to chair. Precautions Posterior Hip Precautions No Hip Flexion > 90 degrees,No Hip Internal Rotation,No Hip Adduction Other Precautions Posterior hip precautions x6 weeks High fall risk Weight Bearing Status Weight Bearing Status Weight Bear as Tolerated Recommendations To Nursing Amount of Assist Needed 2 Person Assist Discharge Recommendations PT Discharge Recommendations SNF Rehab Transportation Needs at Discharge Stretcher/Ambulance
[2023-02-11] MEDS: POTASSIUM CHLORIDE 20 MEQ TAB PO (10:50)
--- NOTE | 2023-02-11 12:34 | CM.DPNOTE ---
Addendum entered by Maria Luisa Walters R.N. 02/11/23 13:46: Additionally, [facility] has declined referral. HILARY Original Note: Discharge Planning Note: Patient is currently POD 2 s/p R kassy ANTIONETTE on 02/09. Patient has had increased confusion, she received IV Haldol last night for agitation with relief (she had refused Seroquel). Urine is + for e coli, on day 2 of 3 IV antibiotic. PT notes state that she can sit unsupported but at current level would require a lift to get up and appropriately they recommend SNF Rehab on dc. Referrals were sent yesterday to SNFs, [facility] and [facility] have denied. Still out [facility], [facility]. Spoke with [facility], Eleuterio states that notes state they can accept her on Mon/Tu. Spoke with supportive spouse Breezy, he was visiting yesterday and met with Mikaela HERNANDEZ. He will come again tomorrow. We discussed discharge options. Discharging home is not an option, 2 story home, etc. She has been living in memory care unit ([facility]) at [facility]. Plan: Discharge to [facility] when medically/surgically cleared, possibly beginning of week? Doris Walters RN/DCP
--- NOTE | 2023-02-11 13:01 | PT-IP ANOTE ---
Per nursing pt is combative/ripping out alex from surgical site, placed in restraints, no appropriate for PT at this time.
[2023-02-11] MEDS: diphenhydrAMINE 50 MG/ML VIAL 25 MG IV (13:30)
--- NOTE | 2023-02-11 13:48 | PC.NURSE ---
Pt has hx of dementia and is alert to self only. Pt is unable to follow instructions. Pt continues to verbally agressive towards staff i.e. swearing, yelling, you're going to hell and you're going to pay for this. Pt is not able to follow directions, staff has continued to reorient the pt. Attempted Haldiol IV for agitation, Dilaudid IV for pain, and attempted PO Bendaryl for itching but pt threw pill across the room and started yelling. Pt continues to pick at her surgical dressing, removed it three times this morning and has removed several alex at the surgical site on the R hip following for broken hip. Pt is now in bilateral upper extremity soft restraints due to the fact that the pt has continued to remove her surgical dressing. Prior to restraints staff was rounding on the pt every 15 minutes, no sitter was available to for continuous one to one observation. Pt has refused to eat breakfast even with staff feeding the pt. Staff attempted to feed the pt again at lunch one on one prior to restraints being applied and the pt refused to eat. When attempting to give the pt oral Bendaryl for itching the pt threw the pill and the chocolate pudding cup across the room. Pt then started picking at her surgical site again and removed some alex. Dr. Calderon with [facility] ortho informed that the pt has removed some alex and provider recommended steristrips and replacing the aquocel dressing over the surgical site which is now completed. Dr. Calderon was notified at 1308 about the pt's condition. Pt is being continued to monitored will in restraints.
[2023-02-11] MEDS: ONDANSETRON 4 MG/2 ML INJ IV (15:37)
[2023-02-11] MEDS: HYDROCODONE/ACET 5/325 TABLET 1 TAB PO (17:05)
[2023-02-11] MEDS: LORazepam 2 MG/ML INJ 0.5 MG IV (18:15)
[2023-02-11] MEDS: cefTRIAXone 1,000 MG in SODIUM CHLORIDE 0.9% 100 ML 200 MG IV (18:45)
[2023-02-12] VITALS: BP 131/61; PULSE 109; RESP 14; TEMP 37.1; O2SAT 97
[2023-02-12 04:13] VITALS: PULSE 88; RESP 20; TEMP 36.2; O2SAT 96
[2023-02-12] MEDS: HYDROMORPHONE 0.5 MG INJ IV ×6 (04:54→21:53)
[2023-02-12 05:33] LABS: Add Manual Diff / Slide Review NO; Basophils Absolute Auto 0 /uL (0-100); Basophils Percent Auto 0.2 % (0-2); Eosinophils Absolute Auto 100 /uL (0-450); Hemoglobin 9.3 g/dL (12.0-16.0); Lymphocytes Absolute Auto 1200 /uL (1100-4500); Lymphocytes Percent Auto 10.2 % (25-40); Mean Corpuscular HGB Conc 34.5 % (30-36); Mean Corpuscular Hemoglobin 29.6 PG (26-34); Mean Corpuscular Volume 85.7 fL (80-100); Monocytes Absolute Auto 1100 /uL (0-900); Neutrophils Absolute Auto 9400 /uL (1500-7000); Neutrophils Percent Auto 79.6 % (50-75); Platelet Count 178 X10^3/uL (150-400); Red Blood Cell Count 3.15 X10^6/uL (4.0-5.2); Red Cell Distribution Width 12.9 % (11.6-14.8); White Blood Cell Count 11.8 X10^3/uL (4.5-11.0)
[2023-02-12 05:43] LABS: BUN Creatinine Ratio 12.2 (6-22); Blood Urea Nitrogen 9 mg/dL (7-17); Calcium 7.8 mg/dL (8.4-10.2); Carbon Dioxide 27 mmol/L (22-32); Chloride 99 mmol/L (98-107); Estimated Glomerular Filt Rate > 60 mL/min (>60); Glucose 98 mg/dL (80-110); HEMOLYSIS < 15 (0-50); Potassium 3.6 mmol/L (3.4-5.1); Sodium 129 mmol/L (137-145)
[2023-02-12 06:19] VITALS: BP 115/41
--- NOTE | 2023-02-12 08:34 | PC.NURSE ---
Addendum entered by Candida Hanson R.N. 02/12/23 13:48: Patients just left, patient given ativan as she was restless and yelling out. This has helped her to calm down. Addendum entered by Candida Hanson R.N. 02/12/23 10:00: Patient ate a couple bites of breakfast and had a coughing episode. She is doing well now, and was able to swallow some water. She did spit out water at AUTOMOTIVE GENERAL MANAGER x1. Will wait a bit to give patient her po medication. Head of bed down and patient states that she is ok at this time. She was able to give a pain level of a 4/10. Will reassess pain when time for her pain medication. Original Note: 0730- Patient moaning and states that she is in pain. 0.5mg of iv dilaudid given and helpful. Patient has non violent soft wrist restraints in place, as she picks on her r.hip aquacel dressing and was messing with the alex. All restraint checks completed. She is tolerating them well. Breakfast will be offered to patient. She is lying supine with her head to the left side. Patient will not keep her r.leg straight. It is slightly bent. She is comfortable now and is resting.
--- NOTE | 2023-02-12 09:27 | P.PN_ITS ---
Subjective Subjective Interval history: Patient had a rough time being very agitated and delirious throughout the day yesterday, however on assessment this morning patient is more appropriately interactive, still a bit sleepy but eager to have breakfast. Has no new complaints of pain. Exam Vital Signs (past 8 hours): - 02/12/23 04:13 02/12/23 06:19 02/12/23 08:17 Temperature 97.2 F L Pulse Rate 88 Respiratory Rate 20 Blood Pressure 115/41 L Pulse Oximetry 96 Oxygen Delivery Method Room Air Oxygen Flow Rate 0 Oxygen Delivery Method Room Air Oxygen Flow Rate 0 Narrative Exam Narrative: GEN: no acute distress, patient drowsy. HEENT: mucous membranes somewhat dry, PERRL NECK: trachea midline, no jvd PULM: clear bilaterally, no wheezes, rhonchi, rales CV: regular rate and rhythm, no murmurs ABD: soft, nontender, nondistended, no organomegaly EXT: warm and well perfused with no edema, right hip postop with wound dressed. NEURO:? no focal deficit, readily apparent dementia Objective Labs 02/12/23 04:58 02/12/23 04:58 Labs: Laboratory Results - last 24 hr 02/12/23 02/12/23 04:58 04:58 WBC 11.8 H RBC 3.15 L Hgb 9.3 L Hct 27.0 L MCV 85.7 MCH 29.6 MCHC 34.5 RDW 12.9 Plt Count 178 Neut % (Auto) 79.6 H Lymph % (Auto) 10.2 L [place] % (Auto) 9.0 Eos % (Auto) 1.0 L Baso % (Auto) 0.2 Neut # (Auto) 9400 H Lymph # (Auto) 1200 [place] # (Auto) 1100 H Eos # (Auto) 100 Baso # (Auto) 0 Sodium 129 L Potassium 3.6 Chloride 99 Carbon Dioxide 27 BUN 9 Creatinine 0.74 Estimated GFR > 60 BUN/Creatinine Ratio 12.2 Glucose 98 Calcium 7.8 L PFSH Social History marital status: household members: caregiver Smoking Status: Never smoker alcohol intake: former Assessment & Plan Assessment & Plan narrative: 1. Acute hip fracture s/p right hip hemiarthroplasty -notable from fall, probably mechanical - intratrochanteric right hip fracture on presentation -underwent right hip hemiarthroplasty with Dr. Calderon on 02/09 -pain medications ordered -PT eval for likely SNF -continue to follow 2. Dementia -lives at [facility], no behavioral issues at [facility] -head CT negative -patient at baseline per and not oriented -on 2022 -component of significant delirium yesterday, appears more at baseline today 3. UTI with E coli, goodwin sensitivity -3 doses of ceftriaxone 1 g IV daily have been ordered previously. Last dose will be completed today. 4. Hyponatremia -129 today, continue to follow 5. Hypocalcemia 7.8 today, continue to follow replace as needed -has been ranging 7.8-7.9 and this admission, reasonably stable Follow labs and clinically. CODE: DNR per Proxy: Breezy Nicole, Jose Armando VTE Deep Vein Thrombosis/Pulmonary Embolism Present on Admission: No
--- NOTE | 2023-02-12 09:38 | P.PN_ITS ---
Subjective Subjective Date Patient Seen: 02/12/23 Time Patient Seen: 09:39 Interval history: Postop day 3 right hip hemiarthroplasty for displaced hip fracture. Patient with severe dementia. Has been restless. One on 1 nursing. Using soft restraints now as she was picking at her incision removed the dressing and removed several alex yesterday. Exam Vital Signs (past 8 hours): - 02/12/23 04:13 02/12/23 06:19 02/12/23 08:17 Temperature 97.2 F L Pulse Rate 88 Respiratory Rate 20 Blood Pressure 115/41 L Pulse Oximetry 96 Oxygen Delivery Method Room Air Oxygen Flow Rate 0 Oxygen Delivery Method Room Air Oxygen Flow Rate 0 Narrative Exam Narrative: Lying in bed resting, soft restraints. Some occasional words and moaning. Received some pain medication not too long ago. Breathing on room air. Respiratory unlabored Right hip with Aquacel dressing in place. No drainage. Thigh is soft. Calf is soft. Observed to spontaneously dorsiflex plantar flex ankle. Palpable distal pulses. Objective Labs 02/12/23 04:58 02/12/23 04:58 Labs: Laboratory Results - last 24 hr 02/12/23 02/12/23 04:58 04:58 WBC 11.8 H RBC 3.15 L Hgb 9.3 L Hct 27.0 L MCV 85.7 MCH 29.6 MCHC 34.5 RDW 12.9 Plt Count 178 Neut % (Auto) 79.6 H Lymph % (Auto) 10.2 L [place] % (Auto) 9.0 Eos % (Auto) 1.0 L Baso % (Auto) 0.2 Neut # (Auto) 9400 H Lymph # (Auto) 1200 [place] # (Auto) 1100 H Eos # (Auto) 100 Baso # (Auto) 0 Sodium 129 L Potassium 3.6 Chloride 99 Carbon Dioxide 27 BUN 9 Creatinine 0.74 Estimated GFR > 60 BUN/Creatinine Ratio 12.2 Glucose 98 Calcium 7.8 L PFSH Social History marital status: household members: caregiver Smoking Status: Never smoker alcohol intake: former Assessment & Plan Post-op Postoperative Procedures: Procedures Operation Date: 02/09/23 18:00 Actual Procedure Side Surgeon p Hip Fx - cemented hemiarthroplasty lateral posterior Right Shruthi Calderon MD Postoperative day: 3 Postoperative status narrative: Doing reasonably well. Recover a limited by underlying severe dementia. She was picking at her dressing and incision was able to remove a few alex yesterday but no serious compromised. New dressing replaced. Postoperative plan: routine post-op care Postoperative plan narrative: Patient has completed her postoperative surgery antibiotics. Also getting antibiotics for UTI. Lovenox DVT prophylaxis x4 weeks SCDs in bed Weightbear as tolerated. Posterior hip precautions for 6 weeks as best can be accommodated with patient's underlying dementia. Pillow between legs in bed will help with this as well as keep the pressure off the contralateral side with her adduction contracture Follow-up with [facility] orthopedic surgery in 2 weeks for staple removal and x-rays Time Spent With Patient Time with patient: less than 15 minutes Quality VTE Deep Vein Thrombosis/Pulmonary Embolism Present on Admission: No
--- NOTE | 2023-02-12 09:45 | PT-IP ANOTE ---
Per RN, pt in restraints, still agitated and was pulling out alex. Will hold PT until pt appropriate.
--- NOTE | 2023-02-12 11:29 | CM.DPNOTE ---
Discharge Planning Note: Patient was given IV Haldol and IV pain med and patient has had a quieter night. Spoke with hospitalist regarding using po medication for controlling agitated behavior because IV psych and pain meds are a barrier to SNF admissions. Dr Hamilton will look into. Spouse Breezy visiting today. Spoke with him about discharge planning issues. He is very supportive to patient and she has been significantly calmer today with him (compared to yesterday). He is feeding her soft food. She is still in soft restraints due to pulling out alex and dressing yesterday. Let Dr Haimlton know that Breezy will be here til 6 pm this evening. Plan: Call [facility] tomorrow to discuss potential admission when patient medically cleared. Continue to follow progress and keep spouse updated. Doris Walters RN/DCP
[2023-02-12 12:00] VITALS: BP 123/79; PULSE 89; RESP 20; TEMP 36.6; O2SAT 95
[2023-02-12] MEDS: LORazepam 2 MG/ML INJ 0.5 MG IV ×2 (12:11→20:03)
[2023-02-12 18:00] VITALS: BP 142/89; PULSE 101; RESP 23; TEMP 36.5; O2SAT 96
[2023-02-12] MEDS: LACTATED RINGERS 1,000 ML 100 ML IV (18:35)
[2023-02-13] VITALS: BP 125/83; PULSE 99; RESP 15; TEMP 36.6; O2SAT 97; O2SAT 98
--- NOTE | 2023-02-13 00:44 | PC.NURSE ---
Addendum entered by Carlos Lugo R.N. 02/13/23 02:16: 0200: restraints replaced, pt in eye view of this RN. Original Note: Right arm restraint removed for a break, STAFF TRAINING AND DEVELOPMENT MANAGER sitting 1:1 with patient during this time.
[2023-02-13] MEDS: LORazepam 2 MG/ML INJ 0.5 MG IV ×3 (03:49→22:52)
[2023-02-13] MEDS: LACTATED RINGERS 1,000 ML 100 ML IV ×2 (04:44→19:42)
[2023-02-13 05:38] LABS: Add Manual Diff / Slide Review NO; Basophils Absolute Auto 0 /uL (0-100); Basophils Percent Auto 0.3 % (0-2); Eosinophils Absolute Auto 300 /uL (0-450); Eosinophils Percent Auto 2.5 % (2-4); Hematocrit 28.2 % (36-46); Hemoglobin 9.8 g/dL (12.0-16.0); Lymphocytes Absolute Auto 1200 /uL (1100-4500); Lymphocytes Percent Auto 11.3 % (25-40); Mean Corpuscular Volume 85.7 fL (80-100); Monocytes Absolute Auto 800 /uL (0-900); Monocytes Percent Auto 8.1 % (3-14); Neutrophils Absolute Auto 8000 /uL (1500-7000); Neutrophils Percent Auto 77.8 % (50-75); Platelet Count 245 X10^3/uL (150-400); Red Blood Cell Count 3.28 X10^6/uL (4.0-5.2); White Blood Cell Count 10.3 X10^3/uL (4.5-11.0)
[2023-02-13 05:59] LABS: BUN Creatinine Ratio 15.2 (6-22); Blood Urea Nitrogen 10 mg/dL (7-17); Calcium 8.2 mg/dL (8.4-10.2); Carbon Dioxide 26 mmol/L (22-32); Chloride 103 mmol/L (98-107); Estimated Glomerular Filt Rate > 60 mL/min (>60); Glucose 96 mg/dL (80-110); HEMOLYSIS < 15 (0-50); Potassium 3.1 mmol/L (3.4-5.1); Sodium 136 mmol/L (137-145)
[2023-02-13 06:00] VITALS: BP 151/66; PULSE 112; RESP 18; TEMP 36.2; O2SAT 97
[2023-02-13 07:00] VITALS: O2SAT 97
[2023-02-13] MEDS: POTASSIUM CHLORIDE IN WATER 10 MEQ/100 ML PIGGYBACK 100 MEQ IV ×4 (07:49→11:01)
[2023-02-13] MEDS: CITALOPRAM 10 MG TABLET PO (08:52)
[2023-02-13] MEDS: DOCUSATE 100 MG CAPSULE PO (08:53)
[2023-02-13] MEDS: QUETIAPINE 25 MG TABLET 12.5 MG PO ×2 (08:53→20:03)
--- NOTE | 2023-02-13 10:00 | PT.IPTN ---
Current Diagnoses Unspecified dementia, unspecified severity, without behavioral disturbance, psychotic disturbance, mood disturbance, and anxiety (02/09/23) Age-related osteoporosis with current pathological fracture, unspecified femur, initial encounter for fracture (02/09/23) Fracture of unspecified part of neck of right femur, initial encounter for closed fracture (02/09/23) Displaced intertrochanteric fracture of right femur, initial encounter for closed fracture (02/09/23) Unspecified fall, initial encounter (02/09/23) Presence of unspecified artificial hip joint (02/09/23) Surgery Performed Operation Date: 02/09/23 18:00 Actual Procedures p Hip Fx - cemented hemiarthroplasty lateral posterior(Right) - Shruthi Calderon MD Physical Therapy Treatment Note M2 PT-IP Current Condition Start: 02/10/23 14:21 Freq: NEEDED Status: Active Protocol: Document 02/10/23 14:22 ES (Rec: 02/10/23 14:50 ES [id number]) Physical Therapy Current Condition Current Condition Evaluation Date 02/10/23 Treatment Diagnosis S/p kassy ANTIONETTE, endoprosthetic fixation of R hip fracture 2/ GLF Onset Date 02/09/23 M3 PT-IP Subjective Start: 02/10/23 14:21 Freq: NEEDED Status: Active Protocol: Document 02/13/23 10:15 TS (Rec: 02/13/23 10:32 TS [id number]) Subjective Physical Therapy Visit Type Type Treatment Note Visit Start Time 10:00 Visit Stop Time 10:15 Total Visit Minutes 15 Number of STRICKLER ATTENDANT Visits 1 Physical Therapy Visit Comments Patient Comments Pt found with nursing sitter in room, pt somewhat lethargic , answered some questions, agreeable to sit on the esge of the bed. M4 PT-IP Mobility and Gait Start: 02/10/23 14:21 Freq: NEEDED Status: Active Protocol: Document 02/13/23 10:15 TS (Rec: 02/13/23 10:32 TS [id number]) PT-Bed Mobility Assessment Supine to Sit Supine to Sit Maximum Assistance,2 Person Assistance,Head of Bed Elevated,Bedrails Sit to Supine Sit to Supine Maximum Assistance,2 Person Assistance Scooting Scooting to Edge of Bed Dependent Scooting Up and Down in Bed Dependent PT-Transfer Assessment Comments Mobility Comments Pt found resting in bed, agreeable to sit edge of bed. Supine to sit HOB elevated MaxA x2 for LEs off EOB and uprighting trunk. Pt sat EOB CGA/Steven ~5 mins without BUE support. Sit to supine MaxA x2 with pillow in place for adduction precaution. Scooted to HOB dependent. Pt was left in bed on L side with nursing staff in room. Gait Assessment Comments Gait Comments Unable; non-ambulatory at baseline. PT-Balance Assessment Sitting Balance and Reactions Static Sitting Balance Ability Good Dynamic Sitting Balance Ability Poor Comments Other Balance Tests/Deviations/Treatment Patient sat EOB CGA for ~5 : minutes without UE support with occasional min A and with tactile cues to avoid hip flexion >90 degrees. M5 PT-IP Objective Assessments Start: 02/10/23 14:21 Freq: NEEDED Status: Active Protocol: Document 02/10/23 14:22 ES (Rec: 02/10/23 14:50 ES [id number]) Orientation Orientation/Cognition Level of Alertness Confusional State Safety Awareness Decreased Safety Awareness Memory Description Short Term Impaired,Prison Impaired Comments Inconsistently followed 1-step commands. Gross Range of Motion Upper Extremity ROM Assessment Within Functional Limits Lower Extremity ROM Assessment Bilaterally Impaired Impairments Hip flexion and adduction contractures and knee flexion contractures present. Strength Comments Strength Comments Unable to formally assess; able to move all limbs against gravity M6 PT-IP Treatment Start: 02/10/23 14:21 Freq: NEEDED Status: Active Protocol: Document 02/11/23 10:23 ES (Rec: 02/11/23 10:32 ES [id number]) Physical Therapy Treatment Other Treatments Other Treatment Performed Performed some manual stretching L hip and knee extension to tolerance to increase available range for mobility. Attempted R hip and knee extension but not well tolerated due to pain. M7 PT-IP Assessment and Plan Start: 02/10/23 14:21 Freq: NEEDED Status: Active Protocol: Document 02/13/23 10:15 TS (Rec: 02/13/23 10:32 TS [id number]) PT Summary Assessment and Plan Potential Rehabilitation Potential Fair Status of Condition at Evaluation Evolving Summary Impairments Pain,ROM,Strength,Balance, Cognition,Bed Mobility, Transfers,Gait Progress Towards Goals Slow Progress due to Pain,Slow Progress - Other Assessment Summary Patient continues to require MaxA x2 for all mobility due to being falls risk and confusion. She did progress sitting to EOB without UE support demonstrating good core stability. At baseline she uses w/c and is currently not safe to progress to propelling in w/c. She was slightly lethargic but could answer some questions during treatment and follow some commands. Continue to recommend SNF for further rehab vs [facility] with increased assistance and HHPT. Goals Bed Mobility Goal Minimal Assistance Transfer Goal Minimal Assistance Other Goals Patient will be able to perform squat pivot transfer bed to/from w/c with min A. Patient will be able to propel self in w/c with supervision x50 ft. Days to Meet Goals 14 Frequency of Treatment Frequency Of Treatment Twice a Day Treatment Plan Physical Therapy Treatment Plan Bed Mobility Training,Transfer Training,Therapeutic Exercise ,Balance Retraining,Post Op Education,Discharge Planning, Hot or Cold Pack,Neuromuscular Re-ed,Manual Therapy Other Recommendations and Next Treatment LE ROM ex's as tolerated, Focus sitting tolerance/balance, eventual goal of transfer to chair. Precautions Posterior Hip Precautions No Hip Flexion > 90 degrees,No Hip Internal Rotation,No Hip Adduction Other Precautions Posterior hip precautions x6 weeks High fall risk Weight Bearing Status Weight Bearing Status Weight Bear as Tolerated Recommendations To Nursing Amount of Assist Needed 2 Person Assist Discharge Recommendations PT Discharge Recommendations SNF Rehab Transportation Needs at Discharge Stretcher/Ambulance
--- NOTE | 2023-02-13 10:26 | PM.PN.1 ---
Subjective Subjective Interval history: Patient behaviorally improved today with 1 on 1 sitter. Answering questions appropriate. Indicates that she is listening to her favorite music and that it helps her sleep when she needs to. Has been able to sit up at the side of the bed as well. No new complaints. And feels she is getting slowly better. Has had breakfast. Exam Vital Signs (past 8 hours): - 02/13/23 06:00 02/13/23 07:00 Temperature 97.2 F L Pulse Rate 112 H Respiratory Rate 18 Blood Pressure 151/66 H Pulse Oximetry 97 97 Oxygen Delivery Method Room Air Oxygen Flow Rate 0 0 Oxygen Delivery Method Room Air Oxygen Flow Rate 0 Narrative Exam Narrative: GEN: no acute distress, patient alert and interactive HEENT: mucous membranes somewhat dry, PERRL NECK: trachea midline, no jvd PULM: clear bilaterally, no wheezes, rhonchi, rales CV: regular rate and rhythm, no murmurs ABD: soft, nontender, nondistended, no organomegaly EXT: warm and well perfused with no edema, right hip postop with wound dressed. NEURO:? no focal deficit, readily apparent dementia Objective Labs 02/13/23 05:11 02/13/23 05:11 Labs: Laboratory Results - last 24 hr 02/13/23 02/13/23 02/13/23 05:11 05:11 05:11 WBC 10.3 RBC 3.28 L Hgb 9.8 L Hct 28.2 L MCV 85.7 MCH 30.0 MCHC 35.0 RDW 13.0 Plt Count 245 Neut % (Auto) 77.8 H Lymph % (Auto) 11.3 L [place] % (Auto) 8.1 Eos % (Auto) 2.5 Baso % (Auto) 0.3 Neut # (Auto) 8000 H Lymph # (Auto) 1200 [place] # (Auto) 800 Eos # (Auto) 300 Baso # (Auto) 0 Sodium 136 L Potassium 3.1 L Chloride 103 Carbon Dioxide 26 BUN 10 Creatinine 0.66 Estimated GFR > 60 BUN/Creatinine Ratio 15.2 Glucose 96 Calcium 8.2 L Magnesium 2.0 PFSH Social History marital status: household members: caregiver Smoking Status: Never smoker alcohol intake: former Assessment & Plan Assessment & Plan narrative: 1. Acute hip fracture s/p right hip hemiarthroplasty - from fall, probably mechanical - intratrochanteric right hip fracture on presentation -underwent right hip hemiarthroplasty with Dr. Calderon on 02/09 -pain medications ordered -PT eval for likely SNF or direct transfer back to [facility] with increased supports-continue to follow 2. Dementia -lives at [facility], no behavioral issues at [facility] -head CT negative -patient possibly at baseline currently. -component of significant delirium during the hospitalization, appears more at baseline today 3. UTI with E coli, goodwin sensitivity -3 doses of ceftriaxone 1 g IV daily have been ordered previously.? Last dose will be completed yesterday 4. Hyponatremia -136 today, continue to follow 5. Hypocalcemia 8.2 today, continue to follow replace as needed Follow labs and clinically. CODE: DNR per Proxy: Breezy Nicole, Quality VTE Deep Vein Thrombosis/Pulmonary Embolism Present on Admission: No
--- NOTE | 2023-02-13 10:44 | CM.DPC ---
DCP/continued: Reviewed EMR. Discussed patient in AM rounds with provider. Currently patient has sitter for safety. Provider started new medication for patient's behavior. No current restraints. Current plan is for patient to be watched for the next 24hrs. The hope is that she will be able to either go to SNF for rehab at [facility] vs. return to [facility]. Right now provider believes it is in the best interest of patient to return to [facility] given her dementia history. TRIAGE CLINICIAN placed call to Debbie at [facility] ph# [phone] ext# [phone] left vm indicating that patient most likely will be medically stable within the next 24-48hrs. Also [facility] is following. Patient requiring sitter today so that she does not pull out her lines. Sitter reports that patient compulsive when awake. P: Anticipate return to [facility] vs. [facility]. MORENO
[2023-02-13 12:00] VITALS: BP 144/64; PULSE 107; RESP 18; O2SAT 100
--- NOTE | 2023-02-13 12:06 | OT.IPNOTE ---
Attempted to see pt for OT services. Pt is lethargic and declines all simple ADLs at this time. Of note, pt recently sat up with PT services. Will hold and continue to follow.
[2023-02-13 12:11] VITALS: TEMP 37.1
[2023-02-13] MEDS: HYDROCODONE/ACET 5/325 TABLET 1 TAB PO (12:52)
--- NOTE | 2023-02-13 15:15 | PT.IPTN ---
Current Diagnoses Unspecified dementia, unspecified severity, without behavioral disturbance, psychotic disturbance, mood disturbance, and anxiety (02/09/23) Age-related osteoporosis with current pathological fracture, unspecified femur, initial encounter for fracture (02/09/23) Fracture of unspecified part of neck of right femur, initial encounter for closed fracture (02/09/23) Displaced intertrochanteric fracture of right femur, initial encounter for closed fracture (02/09/23) Unspecified fall, initial encounter (02/09/23) Presence of unspecified artificial hip joint (02/09/23) Surgery Performed Operation Date: 02/09/23 18:00 Actual Procedures p Hip Fx - cemented hemiarthroplasty lateral posterior(Right) - Shruthi Calderon MD Physical Therapy Treatment Note M2 PT-IP Current Condition Start: 02/10/23 14:21 Freq: NEEDED Status: Active Protocol: Document 02/10/23 14:22 ES (Rec: 02/10/23 14:50 ES [id number]) Physical Therapy Current Condition Current Condition Evaluation Date 02/10/23 Treatment Diagnosis S/p kassy ANTIONETTE, endoprosthetic fixation of R hip fracture 11/10 GLF Onset Date 02/09/23 M3 PT-IP Subjective Start: 02/10/23 14:21 Freq: NEEDED Status: Active Protocol: Document 02/13/23 15:41 TS (Rec: 02/13/23 15:59 TS [id number]) Subjective Physical Therapy Visit Type Type Treatment Note Visit Start Time 15:15 Visit Stop Time 15:36 Total Visit Minutes 21 Number of FRUIT LOADER MACHINE OPERATOR Visits 2 Physical Therapy Visit Comments Patient Comments Pt found with nursing sitter in room and spouse, pt somewhat lethargic, answered some questions, agreeable to sit on the edge of the bed. M4 PT-IP Mobility and Gait Start: 02/10/23 14:21 Freq: NEEDED Status: Active Protocol: Document 02/13/23 15:41 TS (Rec: 02/13/23 15:59 TS [id number]) PT-Bed Mobility Assessment Supine to Sit Supine to Sit Maximum Assistance,2 Person Assistance,Head of Bed Elevated,Bedrails Sit to Supine Sit to Supine Maximum Assistance,2 Person Assistance Scooting Scooting to Edge of Bed Dependent Scooting Up and Down in Bed Dependent PT-Transfer Assessment Comments Mobility Comments Pt found resting in bed, agreeable to sit edge of bed. Supine to sit HOB elevated MaxA x2 for LEs off EOB and uprighting trunk. Pt sat EOB CGA/Steven ~5 mins with BUE support. Sit to supine MaxA x2 with pillow in place for adduction precaution. Scooted to HOB dependent. Pt was left in bed with nursing and spouse in room. Gait Assessment Comments Gait Comments Unable; non-ambulatory at baseline. PT-Balance Assessment Sitting Balance and Reactions Static Sitting Balance Ability Fair Dynamic Sitting Balance Ability Poor Comments Other Balance Tests/Deviations/Treatment Pt sat EOB with BUE support, : x1 posterior LOB. M5 PT-IP Objective Assessments Start: 02/10/23 14:21 Freq: NEEDED Status: Active Protocol: Document 02/10/23 14:22 ES (Rec: 02/10/23 14:50 ES [id number]) Orientation Orientation/Cognition Level of Alertness Confusional State Safety Awareness Decreased Safety Awareness Memory Description Short Term Impaired,[place]ull [place]ucker Impaired Comments Inconsistently followed 1-step commands. Gross Range of Motion Upper Extremity ROM Assessment Within Functional Limits Lower Extremity ROM Assessment Bilaterally Impaired Impairments Hip flexion and adduction contractures and knee flexion contractures present. Strength Comments Strength Comments Unable to formally assess; able to move all limbs against gravity M6 PT-IP Treatment Start: 02/10/23 14:21 Freq: NEEDED Status: Active Protocol: Document 02/11/23 10:23 ES (Rec: 02/11/23 10:32 ES [id number]) Physical Therapy Treatment Other Treatments Other Treatment Performed Performed some manual stretching L hip and knee extension to tolerance to increase available range for mobility. Attempted R hip and knee extension but not well tolerated due to pain. M7 PT-IP Assessment and Plan Start: 02/10/23 14:21 Freq: NEEDED Status: Active Protocol: Document 02/13/23 15:41 TS (Rec: 02/13/23 15:59 TS [id number]) PT Summary Assessment and Plan Potential Rehabilitation Potential Fair Status of Condition at Evaluation Evolving Summary Impairments Pain,ROM,Strength,Balance, Cognition,Bed Mobility, Transfers,Gait Progress Towards Goals Slow Progress due to Pain,Slow Progress - Other Assessment Summary Patient continues to require MaxA/Dependent x2 for all mobility. She is more alert and agreeable this session but continues to not be able to follow single step instructions well. She sat EOB with BUE support this session , x1 posterior LOB. PT recommends SNF for further rehab vs return home with 24/7 assist and HHPT. Pt continues to be below baseline and will require increased assistance if returns home. Goals Bed Mobility Goal Minimal Assistance Transfer Goal Minimal Assistance Other Goals Patient will be able to perform squat pivot transfer bed to/from w/c with min A. Patient will be able to propel self in w/c with supervision x50 ft. Days to Meet Goals 14 Frequency of Treatment Frequency Of Treatment Twice a Day Treatment Plan Physical Therapy Treatment Plan Bed Mobility Training,Transfer Training,Therapeutic Exercise ,Balance Retraining,Post Op Education,Discharge Planning, Hot or Cold Pack,Neuromuscular Re-ed,Manual Therapy Other Recommendations and Next Treatment LE ROM ex's as tolerated, Focus sitting tolerance/balance, eventual goal of transfer to chair. Precautions Posterior Hip Precautions No Hip Flexion > 90 degrees,No Hip Internal Rotation,No Hip Adduction Other Precautions Posterior hip precautions x6 weeks High fall risk Weight Bearing Status Weight Bearing Status Weight Bear as Tolerated Recommendations To Nursing Amount of Assist Needed 2 Person Assist Discharge Recommendations PT Discharge Recommendations Home with 24/7 Assist Available,Home Health,Home vs SNF Transportation Needs at Discharge Stretcher/Ambulance
--- NOTE | 2023-02-13 15:57 | CM.DPC ---
DCP: MANAGER CANCER entered room and introduced role. Spoke with spouse, Breezy, regarding discharge plan. It is unlikely patient will be accepted at SNF due to her dementia, therefore MANAGER CANCER encouraged HH services to manage PT/OT upon discharge. Spouse reports concerns with patient caloric intake. MANAGER CANCER placed orders for dietary consult per provider verbal orders. Spouse reported speaking to Dmitriy at [facility] for medical information and [facility] for non medical concerns. MANAGER CANCER has not heard back from [facility] at this time. Have left a voicemail this am. P: At this time, the plan is for patient to return to [facility] when medically stable and set up HH services for PT/OT. Will continue to monitor and assist. DAVID Rodríguez
[2023-02-13 18:00] VITALS: TEMP 37
[2023-02-13] MEDS: HYDROMORPHONE 0.5 MG INJ IV (21:47)
[2023-02-14] VITALS: BP 127/69; PULSE 99; RESP 21; TEMP 37; O2SAT 97
[2023-02-14 06:00] VITALS: BP 125/67; PULSE 77; RESP 19; TEMP 36.8; O2SAT 95
[2023-02-14] MEDS: LACTATED RINGERS 1,000 ML 100 ML IV (06:11)
[2023-02-14 07:00] VITALS: O2SAT 98
[2023-02-14] MEDS: QUETIAPINE 25 MG TABLET 12.5 MG PO (08:26)
[2023-02-14] MEDS: CITALOPRAM 10 MG TABLET PO (08:26)
--- NOTE | 2023-02-14 08:32 | PT-IP ANOTE ---
Pt more alert and answering questions this morning. She reports not wanting to move today with PT. Will check in later in the afternoon.
--- NOTE | 2023-02-14 10:59 | CM.DPC ---
Addendum entered by DAVID Rodríguez 02/14/23 12:10: SHINE Baumann Spoke with Debbie with [facility] who stated they are not able to accept the patient back today due to her need for restraints last night, 1 to 1 sitter and IV Dilaudid pain medications from today. SHINE explained to Debbie that [facility] is her home and saying they are bot going to be taking the patient back to her home is not acceptable but... that we understand wanting to watch her another night to make sure she is more back to her baseline after surgery ... Debbie agreed to come review patient tomorrow morning to see if she is back to her baseline and able to return to there facility tomorrow at 11am. CM team will continue to follow to support [place] planning needs and set up Home health prior to patients DC. Leeanne Baumann bowling teacher Original Note: DCP: SHINE spoke with Debbie with [facility] and discussed patient returning to memory care unit Debbie stated she is going to review with her nurse to see if they can handle patients medical needs and will get back to by Noon today with answer. CM will discuss Home health options to support patients healing at Memory care when Debbie returns call. CM called march at [facility] to check to see if she can accept the patient for SNF rehab then return to [facility] at [place]. Patient did have a 1 to 1 sitter yesterday and was in restraints following surgery however those were removed yesterday afternoon/ evening and currently does not have a sitter. Deana stated she will review and let CM know if they can accept patient back by 1300. DAVID Rodríguez
[2023-02-14 13:57] VITALS: BP 127/80; PULSE 105; RESP 20; TEMP 36.7; O2SAT 99
[2023-02-14] MEDS: HYDROMORPHONE 0.5 MG INJ IV (15:45)
[2023-02-14] MEDS: LORazepam 2 MG/ML INJ 0.5 MG IV ×2 (15:47→21:48)
--- NOTE | 2023-02-14 16:06 | OT.IPNOTE ---
Per nurse, pt just given Ativan and to allow pt to sleep, therefore to check on pt tomorrow for OT session.
--- NOTE | 2023-02-14 16:36 | PT-IP ANOTE ---
Per nursing pt not appropriate at this time, needs to rest, will check in on her tomorrow morning.
--- NOTE | 2023-02-14 17:53 | P.PN_ITS ---
Subjective Subjective Interval history: Patient now at baseline mentation. Did need some restraints overnight briefly. 1-1 sitter cancelled. She asks me to put the chair in the living room. Exam Vital Signs (past 8 hours): - 02/14/23 13:57 Temperature 98.1 F Pulse Rate 105 H Respiratory Rate 20 Blood Pressure 127/80 Pulse Oximetry 99 Oxygen Delivery Method Room Air Oxygen Flow Rate 0 Narrative Exam Narrative: GEN: no acute distress, patient alert and interactive HEENT: mucous membranes somewhat dry, PERRL NECK: trachea midline, no jvd PULM: clear bilaterally, no wheezes, rhonchi, rales CV: regular rate and rhythm, no murmurs ABD: soft, nontender, nondistended, no organomegaly EXT: warm and well perfused with no edema, right hip postop with wound dressed. NEURO:? no focal deficit, readily apparent dementia Objective Labs 02/13/23 05:11 02/13/23 05:11 [facility] Social History marital status: household members: caregiver Smoking Status: Never smoker alcohol intake: former Assessment & Plan Assessment & Plan narrative: 1. Acute hip fracture s/p right hip hemiarthroplasty - from fall, probably mechanical - intratrochanteric right hip fracture on presentation -underwent right hip hemiarthroplasty with Dr. Calderon on 02/09 -pain medications ordered -PT eval for likely SNF or direct transfer back to [facility] with increased supports-continue to follow 2. Dementia -lives at [facility], no behavioral issues at [facility] -head CT negative -patient possibly at baseline currently. -component of significant delirium during the hospitalization, appears more at baseline now -continue seroquel 12.5 BID for now 3. UTI with E coli, goodwin sensitivity -3 doses of ceftriaxone 1 g IV daily completed 4. Hyponatremia -136, continue to follow 5. Hypocalcemia -8.2, continue to follow replace as needed Follow labs and clinically. CODE: DNR per Proxy: Breezy Nicole, Quality VTE Deep Vein Thrombosis/Pulmonary Embolism Present on Admission: No
[2023-02-14 19:00] VITALS: O2SAT 94
[2023-02-14] MEDS: DOCUSATE 100 MG CAPSULE PO (21:05)
[2023-02-15] VITALS (7 sets, daily range): BP systolic 101–144; BP diastolic 58–68; PULSE 83–99; RESP 16–18; TEMP 36.4–36.9; O2SAT 94–98
[2023-02-15] MEDS: LORazepam 2 MG/ML INJ 0.5 MG IV (06:46)
--- NOTE | 2023-02-15 08:27 | PT-IP ANOTE ---
Pt alert when awakened this morning, unresponsive to questions or unwilling to respond to questions, pt not appropriate at this time, will attempt to see in afternoon
[2023-02-15] MEDS: QUETIAPINE 25 MG TABLET 12.5 MG PO ×2 (09:13→19:40)
[2023-02-15] MEDS: DOCUSATE 100 MG CAPSULE PO (09:13)
[2023-02-15] MEDS: ENOXAPARIN 40 MG/0.4 ML SYRINGE SUBCUT (09:13)
[2023-02-15] MEDS: CITALOPRAM 10 MG TABLET PO (09:13)
[2023-02-15] MEDS: HYDROCODONE/ACET 5/325 TABLET 1 TAB PO (10:17)
--- NOTE | 2023-02-15 12:07 | CM.DPC ---
Addendum entered by DAVID Rodríguez 02/15/23 14:27: RN spoke with , Breezy, on the phone. Reviewed current discharge plan with him. Breezy verbally approved current plan and acknowledged potential financial fee associated with BLS. Plan : [facility] tomorrow scheduled at 1030, BLS form completed and signed by provider. Original Note: DCP: RECYCLING SORTER and RN met with Riana and Debbie from [facility] and [facility] respectively. Riana reported being concerned with patient's current status with her folley in place and PO adavan administration this am. Patient will need to have folley DC'ed, being able to void, and not be as medicated to DC to [facility] first then return to [facility] once recovered. CM team talked with Dr. Renteria who is in agreement to DC contra [facility] and have patient DC tomorrow to [facility] at 10:30am. CM team will do PASRR and talk with provider about getting DC orders placed for tomorrow morning. CM team did talk with Deana at [facility] to confirm admission status. Deana is in agreement with admissions tomorrow, 02/16, by BLS transport at 10:30am. P: CM team will contact family regarding discharge information. CM team will complete PASRR and set up BLS transport. Patient will transition to [facility] tomorrow, 02/16, at 10:30am. DAVID Rodríguez
--- NOTE | 2023-02-15 14:32 | DIET.CONS2 ---
Dietary Inpatient Consultation Note Admission Date: 02/09/2023 05:07 RD at bedside for discussion with family about pts nutrition status, however, family not present. Pt with advanced dementia living in memory care. It is expected within advancing dementia to have reduced PO food and fluid intake as pts lose situational awareness. Strategies to support nutrition status include regular structured meal times, nourishments within visual sight of patient, gentle cuing. Pt living in memory care center providing all of the above strategies. Diet: 02/09/23 Breakfast General (Regular) Diet Diet Modifications: Nutrition Percent Meal Consumed appleasauce 02/15/23 11:50 Percent Meal Consumed pt asleep 02/15/23 09:45 Percent Meal Consumed pt sleeping 02/14/23 18:00 Percent Meal Consumed 25% 02/14/23 13:42 Percent Meal Consumed 5% 02/13/23 17:42 Electronically Signed by: Carolyn Lance 02/15/23 14:32 Clinical Dietitian [address] [id number]
--- NOTE | 2023-02-15 15:42 | PM.PN.1 ---
Subjective Subjective Interval history: Patient did not require restraints overnight. Vieira removed and POLST filled out indicating DNR and limited medical interventions with . Exam Vital Signs (past 8 hours): - 02/15/23 09:00 02/15/23 12:00 Temperature 98.3 F 98.1 F Pulse Rate 91 H 99 H Respiratory Rate 17 17 Blood Pressure 136/68 101/58 L Pulse Oximetry 95 94 Oxygen Flow Rate 0 0 Oxygen Delivery Method Room Air Oxygen Flow Rate 0 Narrative Exam Narrative: GEN: no acute distress, patient alert and interactive HEENT: mucous membranes somewhat dry, PERRL NECK: trachea midline, no jvd PULM: clear bilaterally, no wheezes, rhonchi, rales CV: regular rate and rhythm, no murmurs ABD: soft, nontender, nondistended, no organomegaly EXT: warm and well perfused with no edema, right hip postop with wound dressed. NEURO:? no focal deficit, readily apparent dementia Objective Labs 02/13/23 05:11 02/13/23 05:11 [facility] Social History marital status: household members: caregiver Smoking Status: Never smoker alcohol intake: former Assessment & Plan Assessment & Plan narrative: 1. Acute hip fracture s/p right hip hemiarthroplasty - from fall, probably mechanical - intratrochanteric right hip fracture on presentation -underwent right hip hemiarthroplasty with Dr. Calderon on 02/09 -pain medications ordered -plan for dc back to [facility] 2. Dementia -lives at [facility], no behavioral issues at [facility] -head CT negative -component of significant delirium during the hospitalization, appears more at baseline now -continue seroquel 12.5 BID, ativan PRN for agitation 3. UTI with E coli, goodwin sensitivity -3 doses of ceftriaxone 1 g IV daily completed 4. Hyponatremia -136, continue to follow 5. Hypocalcemia -8.2, continue to follow replace as needed CODE: DNR per Proxy: Breezy Nicole, Dispo: Back to [facility] on 02/16. Quality VTE Deep Vein Thrombosis/Pulmonary Embolism Present on Admission: No
--- NOTE | 2023-02-15 15:53 | OT.IP.TRT ---
Current Diagnoses Unspecified dementia, unspecified severity, without behavioral disturbance, psychotic disturbance, mood disturbance, and anxiety (02/09/23) Age-related osteoporosis with current pathological fracture, unspecified femur, initial encounter for fracture (02/09/23) Fracture of unspecified part of neck of right femur, initial encounter for closed fracture (02/09/23) Displaced intertrochanteric fracture of right femur, initial encounter for closed fracture (02/09/23) Unspecified fall, initial encounter (02/09/23) Presence of unspecified artificial hip joint (02/09/23) Surgery Performed Operation Date: 02/09/23 18:00 Actual Procedures p Hip Fx - cemented hemiarthroplasty lateral posterior(Right) - Shruthi Calderon MD Occupational Therapy Treatment Note M2 OT-IP Current Condition Start: 02/10/23 14:20 Freq: Status: Active Protocol: Document 02/10/23 13:45 [facility] (Rec: 02/10/23 14:47 [facility] [id number]) Occupational Therapy Current Condition Current Condition Evaluation Date 02/10/23 Treatment Diagnosis R ANTIONETTE Diagnosis Onset Date 02/09/23 M3 OT- IP Subjective and Pain Start: 02/10/23 14:20 Freq: Status: Active Protocol: Document 02/15/23 16:31 [facility] (Rec: 02/15/23 16:42 [facility] [id number]) OT- Subjective Occupational Therapy Visit Type Type Treatment Note Visit Start Time 15:53 Visit Stop Time 16:25 Total Visit Minutes 17 Notes Able to see pt with STENCILER for part of the session. Occupational Therapy Visit Comments Patient Comments Pt's agreed to try to get pt up. Patient/Caregiver Goals Pt's agreed to have pt go to skilled rehab. OT Pain Assessment Pain When Pain Assessed During Mobility M4 OT- IP ADL's Start: 02/10/23 14:20 Freq: Status: Active Protocol: Document 02/15/23 16:31 [facility] (Rec: 02/15/23 16:42 [facility] [id number]) OT LLM-Dhev-Cgewryp Comments OT Self-Feeding Comments NOt at meal time. Pt was not able to sip from a straw when water offered. OT ADL-Grooming General Evaluation Grooming Ability Maximum Assistance Areas Needing Assistance Retrieving/Set-up of Grooming Items Comments OT Grooming Comments Able to place brush in her right hand and able to brush the side of right her hair and needing assist for completeness. After set-up of wash cloth in her hand able to wash the bottom of her mouth. OT ADL-Oral Care General Eval Oral Care Ability Total Assistance Areas of Assistance Brushing Teeth Comments Oral Care Comments Assist to use the swab with mouthwash to help clean her mouth out. OT ADL-Dressing General Eval Lower Body Dressing Ability Total Assistance Areas Needing Assistance Underpants/Brief OT ADL-Toileting General Evaluation Toileting Ability Total Assistance Areas Needing Assistance Perform Perineal Hygiene Comments OT Toileting Comments Total assist x2 for brief change and hygiene needs. Noted hip dressing needing to be changed and nurse notified. OT ADL-Bathing Comments OT Bathing Comments Sponge bath more appropriate at this time. M5 OT- IP IADL's Start: 02/10/23 14:20 Freq: Status: Active Protocol: Document 02/10/23 13:45 [facility] (Rec: 02/10/23 14:47 [facility] [id number]) OT-Instrumental Activities of Daily Living Deficits IADL Deficits Identified Deficits Home Safety Awareness Awareness of Need for Assistance at Home Decreased Awareness Ability to Problem Solve Emergency Unable to Problem Solve Situations Home Safety Comments Pt has dementia and needing assist for all needs at this time. Medication Management Medication Management Caregiver Administers Money Management Money Management Caregiver Provides Assistance Meal Preparation Meal Preparation Caregiver Provides Assist Material Analyst Material Analyst Caregiver Provides Assist M6 OT- IP Functional Cognition Start: 02/10/23 14:20 Freq: Status: Active Protocol: Document 02/15/23 16:31 [facility] (Rec: 02/15/23 16:42 [facility] [id number]) Cognitive Factors Limiting Selfcare Function Cognitive Ability Level of Alertness Alert,Drowsy Ability to Follow Commands Able to Follow One Step Commands with Increased Time, Able to Follow One Step Commands with Repetition Cognitive Comments Cognitive Assessment Comments Pt able to respond to her name and agreed to get up today. Pt able to follow simple command so able to participate in oral care and grooming needs. M7 OT- IP Mobility and Balance Start: 02/10/23 14:20 Freq: Status: Active Protocol: Document 02/15/23 16:31 [facility] (Rec: 02/15/23 16:42 [facility] [id number]) OT-Transfer Assessment Comments Mobility Comments Total assist x2 and use of green pad, once positioned on the edge of the bed, pt able to sit with SBA to MESERET. OT- Balance Assessment Sitting Balance and Reactions Static Sitting Balance Ability Fair Dynamic Sitting Balance Ability Poor Protocol: Document 02/15/23 16:31 [facility] (Rec: 02/15/23 16:42 [facility] [id number]) OT Summary Assessment and Plan Potential Rehabilitation Potential Fair Analytic Complexity at Evaluation High Summary OT Impairments Pain,Range of Motion,Strength, Balance,Functional Cognition, Functional Mobility,Self- Feeding,Grooming,Dressing, Toileting,Bathing,Toilet Transfers,Shower Transfers, Activity Tolerance Progress Towards Goals Progressing Toward Goals Assessment Summary Pt able to sit at the edge of the bed for several minutes. While in bed with head of bed up, pt able to actively participate in grooming/oral care needs after set-up, but needing assist to complete the tasks. Pt will still benefit from skilled rehab as current level far from her baseline at this time. Goals Self-Feeding Goal Standby Assistance Grooming Goal Standby Assistance Dressing Goal Minimal Assistance Toileting Goal Minimal Assistance Bathing Goal Moderate Assistance Toilet Transfer Goal Moderate Assistance Shower Transfer Goal Moderate Assistance Days to Meet Goals 29 Frequency of Treatment Frequency Of Treatment Once a Day Treatment Plan OT Treatment Plan ADL Training,Functional Mobility,Patient/Family Education,Discharge Planning Other Treatment Recommendations and Next Transfer to recliner with Treatment Focus MAXAx2 Discharge Recommendations OT Discharge Recommendations SNF Rehab Transportation Needs at Discharge Stretcher/Ambulance
--- NOTE | 2023-02-15 16:11 | PT.IPTN ---
Current Diagnoses Unspecified dementia, unspecified severity, without behavioral disturbance, psychotic disturbance, mood disturbance, and anxiety (02/09/23) Age-related osteoporosis with current pathological fracture, unspecified femur, initial encounter for fracture (02/09/23) Fracture of unspecified part of neck of right femur, initial encounter for closed fracture (02/09/23) Displaced intertrochanteric fracture of right femur, initial encounter for closed fracture (02/09/23) Unspecified fall, initial encounter (02/09/23) Presence of unspecified artificial hip joint (02/09/23) Surgery Performed Operation Date: 02/09/23 18:00 Actual Procedures p Hip Fx - cemented hemiarthroplasty lateral posterior(Right) - Shruthi Calderon MD Physical Therapy Treatment Note M2 PT-IP Current Condition Start: 02/10/23 14:21 Freq: NEEDED Status: Active Protocol: Document 02/10/23 14:22 ES (Rec: 02/10/23 14:50 ES [id number]) Physical Therapy Current Condition Current Condition Evaluation Date 02/10/23 Treatment Diagnosis S/p kassy ANTIONETTE, endoprosthetic fixation of R hip fracture 2/ GLF Onset Date 02/09/23 M3 PT-IP Subjective Start: 02/10/23 14:21 Freq: NEEDED Status: Active Protocol: Document 02/15/23 16:26 TS (Rec: 02/15/23 16:34 TS [id number]) Subjective Physical Therapy Visit Type Type Treatment Note Visit Start Time 16:11 Visit Stop Time 16:25 Total Visit Minutes 14 Number of FINISHING PAN OPERATOR Visits 3 Physical Therapy Visit Comments Patient Comments Pt found resting in bed, spouse in room, agreeable to sit up. Therapy Pain Assessment Pain When Pain Assessed During Mobility Pain Present Pain Present Pain Reported M4 PT-IP Mobility and Gait Start: 02/10/23 14:21 Freq: NEEDED Status: Active Protocol: Document 02/15/23 16:26 TS (Rec: 02/15/23 16:34 TS [id number]) PT-Bed Mobility Assessment Supine to Sit Supine to Sit Maximum Assistance,2 Person Assistance,Head of Bed Elevated,Bedrails Sit to Supine Sit to Supine Maximum Assistance,2 Person Assistance Scooting Scooting to Edge of Bed Dependent Scooting Up and Down in Bed Dependent PT-Transfer Assessment Comments Mobility Comments Pt found resting in bed, agreeable to sit edge of bed. Supine to sit HOB elevated MaxA x2 for LEs off EOB and uprighting trunk. Pt sat EOB CGA/Steven ~5 mins with BUE support, demonstrates good use of core strength. Sit to supine MaxA x2 with pillow in place for adduction precaution . Scooted to HOB dependent. Pt was left in bed with nursing for bed changing and spouse in room. PT-Balance Assessment Sitting Balance and Reactions Static Sitting Balance Ability Fair Dynamic Sitting Balance Ability Poor Comments Other Balance Tests/Deviations/Treatment Pt sat EOB with BUE support, : x1 posterior LOB. M5 PT-IP Objective Assessments Start: 02/10/23 14:21 Freq: NEEDED Status: Active Protocol: Document 02/10/23 14:22 ES (Rec: 02/10/23 14:50 ES [id number]) Orientation Orientation/Cognition Level of Alertness Confusional State Safety Awareness Decreased Safety Awareness Memory Description Short Term Impaired,Fpc Impaired Comments Inconsistently followed 1-step commands. Gross Range of Motion Upper Extremity ROM Assessment Within Functional Limits Lower Extremity ROM Assessment Bilaterally Impaired Impairments Hip flexion and adduction contractures and knee flexion contractures present. Strength Comments Strength Comments Unable to formally assess; able to move all limbs against gravity M6 PT-IP Treatment Start: 02/10/23 14:21 Freq: NEEDED Status: Active Protocol: Document 02/11/23 10:23 ES (Rec: 02/11/23 10:32 ES [id number]) Physical Therapy Treatment Other Treatments Other Treatment Performed Performed some manual stretching L hip and knee extension to tolerance to increase available range for mobility. Attempted R hip and knee extension but not well tolerated due to pain. M7 PT-IP Assessment and Plan Start: 02/10/23 14:21 Freq: NEEDED Status: Active Protocol: Document 02/15/23 16:26 TS (Rec: 02/15/23 16:34 TS [id number]) PT Summary Assessment and Plan Potential Rehabilitation Potential Fair Status of Condition at Evaluation Evolving Summary Impairments Pain,ROM,Strength,Balance, Cognition,Bed Mobility, Transfers,Gait Progress Towards Goals Slow Progress due to Pain,Slow Progress - Other Assessment Summary Patient continues to require MaxA/Dependent x2 for all mobility. She is lethargic this afternoon but did agree to sit up with therapy, still unable to follow single step instructions. She sat EOB with BUE support this session and without UE support demonstrating good core strength, x1 posterior LOB. PT recommends SNF for further rehab vs return home with 24/7 assist and HHPT. Pt continues to be below baseline and will require increased assistance if returns home. Goals Bed Mobility Goal Minimal Assistance Transfer Goal Minimal Assistance Other Goals Patient will be able to perform squat pivot transfer bed to/from w/c with min A. Patient will be able to propel self in w/c with supervision x50 ft. Days to Meet Goals 14 Frequency of Treatment Frequency Of Treatment Twice a Day Treatment Plan Physical Therapy Treatment Plan Bed Mobility Training,Transfer Training,Therapeutic Exercise ,Balance Retraining,Post Op Education,Discharge Planning, Hot or Cold Pack,Neuromuscular Re-ed,Manual Therapy Other Recommendations and Next Treatment LE ROM ex's as tolerated, Focus sitting tolerance/balance, eventual goal of transfer to chair. Precautions Posterior Hip Precautions No Hip Flexion > 90 degrees,No Hip Internal Rotation,No Hip Adduction Other Precautions Posterior hip precautions x6 weeks High fall risk Weight Bearing Status Weight Bearing Status Weight Bear as Tolerated Recommendations To Nursing Amount of Assist Needed 2 Person Assist Discharge Recommendations PT Discharge Recommendations Home with 24/7 Assist Available,Home Health,Home vs SNF Transportation Needs at Discharge Stretcher/Ambulance
[2023-02-15 17:39] LABS: COVID19 -Nasal RAPID Negative (Negative)
[2023-02-15] MEDS: LORazepam 0.5 MG TABLET PO (20:49)
[2023-02-16] MEDS: LORazepam 0.5 MG TABLET PO (02:53)
[2023-02-16 06:00] VITALS: BP 153/79; PULSE 91; RESP 15; TEMP 36.4; O2SAT 98
--- NOTE | 2023-02-16 07:47 | PM.DS.1 ---
History of Present Illness History of Present Illness Date Patient Seen: 02/09/23 Time Patient Seen: 06:30 Chief complaint: Fall from bed Narrative: Ms. Moulton is a 67W with H dementia who presents to the hospital after a fall. She lives at a facility and she was found down on the ground. She is not able to provide much information due to her dementia. How she fell is unknown. Her facility suspects she fell within 10 minutes of being found down on the ground. She was complaining of right hip pain and unable to ambulate. She did not have any pain anywhere else. It is unknown if she had injury or loss of consciousness, however she has no visible head injury. In the ED workup was done, vitals notable for afebrile, heart rate in the 70s, blood pressure 100s/60s, sats 99% on room air. Labs reviewed by me and WBC 9.9, hgb 14.3, plts 248. Na 140, k 3.8, cl 105, creatinine 0.92. INR 0.9. LFTs normal. CT head reviewed by me and negative for intracranial bleed. CT c-spine per radiologist notable for no acute process. Hip xray showed minimally displaced right intratrochanteric hip fracutre. Orthopedic surgery consulted. She was admitted for further treatment. Discharge Providers Provider Date of admission: 02/09/23 05:07 Discharge Date: 02/16/23 Consults: 02/09/23 06:17 Consult to Orthopedic Surgery Routine Comment: Consulting Provider: Shruthi Calderon Reason for consultation: hip fracture Has provider been notified: Yes 02/09/23 22:00 Consult to Discharge Planning Routine Comment: Consult to Physical Therapy Evaluate & Treat Comment: Patient has dementia Physician Instructions: post op hemiarthroplasty protocol 02/10/23 11:41 Consult to Occupational Therapy Evaluate & Treat Comment: Physician Instructions: Evaluate and treat 02/13/23 15:55 Consult to Dietitian, Adult Routine Comment: DX: dementia Reason For Exam: Spouse with concerns about oral intake Discharge provider: Len Renteria DO Summary Hospital Course Discharge Diagnosis: 1. Acute hip fracture s/p right hip hemiarthroplasty - from fall, probably mechanical - intratrochanteric right hip fracture on presentation -underwent right hip hemiarthroplasty with Dr. Calderon on 02/09 -pain medications ordered -plan for dc back to SNF on 4 weeks of lovenox 2. Dementia -lives at [facility], no behavioral issues at [facility] -head CT negative -component of significant delirium during the hospitalization, appears more at baseline now -continue seroquel 12.5 BID, ativan PRN for agitation 3. UTI with E coli, goodwin sensitivity -3 doses of ceftriaxone 1 g IV daily completed 4. Hyponatremia -136, continue to follow 5. Hypocalcemia -8.2, continue to follow replace as needed Hospital Course: Admitted for fall resulting in right hip fracture. Underwent surgical repair with ortho. Had some post op delirium for a few days which improved with po seroquel. UTI was treated with IV abx. Discharging back to SNF on 4 weeks of lovenox and will f/u with ortho in 2 weeks. Time Spent with Patient Time spent: Greater than 30 minutes Exam Vital Signs (past 8 hours): - 02/16/23 06:00 Temperature 97.6 F Pulse Rate 91 H Respiratory Rate 15 Blood Pressure 153/79 H Pulse Oximetry 98 Oxygen Delivery Method Room Air Oxygen Flow Rate 0 Narrative Exam Narrative: GEN: no acute distress, patient alert and interactive HEENT: mucous membranes somewhat dry, PERRL NECK: trachea midline, no jvd PULM: clear bilaterally, no wheezes, rhonchi, rales CV: regular rate and rhythm, no murmurs ABD: soft, nontender, nondistended, no organomegaly EXT: warm and well perfused with no edema, right hip postop with wound dressed. NEURO:? no focal deficit, readily apparent dementia Objective Labs 02/13/23 05:11 02/13/23 05:11 Labs: Laboratory Results - last 24 hr 02/15/23 16:50 SARS-CoV-2 (PCR) Negative [facility] Social History marital status: household members: caregiver Smoking Status: Never smoker alcohol intake: former Discharge Plan Discharge Plan Patient Disposition: SNF Transfer to: [facility] Discharge orders & Medications Prescriptions: New quetiapine 25 mg Tablet 12.5 mg PO BID Qty: 30 0RF enoxaparin [Lovenox] 40 mg/0.4 mL Syringe 40 mg SUBCUT DAILY 21 Days Qty: 8 0RF Continued citalopram 10 mg tablet 10 mg PO DAILY lorazepam 0.5 mg tablet 0.5 mg PO Q6H ibuprofen 200 mg PO DAILY Follow up/Referrals: Shruthi Calderon MD [Physician] - 2 Weeks (Follow up w/ PA or Dr Calderon in 2 weeks for wound check and repeat imaging.) Diet/Activity/Treatments Activity: Weightbearing as tolerated on right leg. Posterior hip precautions for 6 weeks. Try to keep a pillow between the legs while in bed if she will tolerate. Skin/Wound/Dressing Care Report to your healthcare provider any signs of infection, such as:: chills, fever, night sweats, unusual drainage and unusual redness Dressing: May shower. Leave Aquacel dressing in place until follow up in office. No bathing or otherwise soaking incision. Call the office if the dressing becomes saturated inside. Visit Report/Discharge Packet Instructions: DI for Hip Replacement Stand Alone Forms: Patient Portal/API, Surgery Discharge Quality VTE Deep Vein Thrombosis/Pulmonary Embolism Present on Admission: No
[2023-02-16] MEDS: QUETIAPINE 25 MG TABLET 12.5 MG PO (08:44)
[2023-02-16] MEDS: CITALOPRAM 10 MG TABLET PO (08:44)
[2023-02-16] MEDS: DOCUSATE 100 MG CAPSULE PO (08:45)
[2023-02-16] MEDS: ENOXAPARIN 40 MG/0.4 ML SYRINGE SUBCUT (08:45)
--- NOTE | 2023-02-16 09:22 | PC.NURSE ---
Patient is alert today but confused. Repositioned in supine position. She makes circles in her bed but is unable to get out of bed and is not strong enough to move herself up. Patient has a bandage to her r.hip that is cdi. She will be discharged to [facility] today at 1030
[2023-02-16 09:48] VITALS: BP 149/71; PULSE 97; RESP 18; TEMP 36.6; O2SAT 100
== END 2023-02-16 10:30 | DRG 522 ==
LOC: ED 05:04 → AC 05:08
PROVIDERS: Neuromusculoskeletal Medicine, Sports Medicine; Orthopaedic Surgery Foot and Ankle Surgery; Student in an Organized Health Care Education/Training Program; Admitting Provider Internal Medicine; Emergency Provider Emergency Medicine; Referring Provider Emergency Medicine; Visit Provider Internal Medicine
PROC: 0SRR0JZ Replacement of Right Hip Joint, Femoral Surface with Synthetic Substitute, Open Approach (ICD-10-PCS; CPT 27125; principal; 2023-02-09 18:00)
DX: M80.051A Age-related osteoporosis with current pathological fracture, right femur, initial encounter for fracture (principal); N39.0 Urinary tract infection, site not specified; E87.1 Hypo-osmolality and hyponatremia; F03.C11 Unspecified dementia, severe, with agitation; F05 Delirium due to known physiological condition; B96.20 Unspecified Escherichia coli [E. coli] as the cause of diseases classified elsewhere; E83.51 Hypocalcemia; W18.30XA Fall on same level, unspecified, initial encounter; Z20.822 Contact with and (suspected) exposure to COVID-19; Z66 Do not resuscitate
CPT/HCPCS: 36415; 70450; 72125; 72170; 73502; 80048; 80053; 81001; 83735; 85025; 85610; 85730; 86850; 86900; 86901; 87077; 87086; 87186; 87635; 96374; 97163; 97167; 97530; 97535; 99284; C1776; C9803; J0171; J0690; J0696; J1170; J1200; J1630; J1650; J2060; J2270; J2405; J2704; J3010

== ENCOUNTER → 2023-02-21 05:38 | Outpatient (ROUT) | payer MEDICARE, MEDICAID, SELFPAY ==
[2023-02-09 08:34] VITALS: BMI 18.3
[2023-02-21 05:47] LABS: Add Manual Diff / Slide Review NO; Basophils Absolute Auto 100 /uL (0-100); Basophils Percent Auto 0.5 % (0-2); Eosinophils Absolute Auto 300 /uL (0-450); Eosinophils Percent Auto 3.3 % (2-4); Hematocrit 29.9 % (36-46); Hemoglobin 10.1 g/dL (12.0-16.0); Lymphocytes Absolute Auto 2300 /uL (1100-4500); Lymphocytes Percent Auto 22.9 % (25-40); Mean Corpuscular HGB Conc 33.7 % (30-36); Mean Corpuscular Hemoglobin 29.3 PG (26-34); Mean Corpuscular Volume 86.9 fL (80-100); Monocytes Absolute Auto 700 /uL (0-900); Monocytes Percent Auto 7.1 % (3-14); Neutrophils Absolute Auto 6500 /uL (1500-7000); Neutrophils Percent Auto 66.2 % (50-75); Platelet Count 454 X10^3/uL (150-400); Red Blood Cell Count 3.44 X10^6/uL (4.0-5.2); Red Cell Distribution Width 13.5 % (11.6-14.8); White Blood Cell Count 9.9 X10^3/uL (4.5-11.0)
[2023-02-21 05:58] LABS: BUN Creatinine Ratio 20.7 (6-22); Blood Urea Nitrogen 24 mg/dL (7-17); Calcium 8.8 mg/dL (8.4-10.2); Carbon Dioxide 29 mmol/L (22-32); Chloride 105 mmol/L (98-107); Estimated Glomerular Filt Rate 52 mL/min (>60); Glucose 96 mg/dL (80-110); HEMOLYSIS < 15 (0-50); Magnesium 2.3 mg/dL (1.6-2.3); Potassium 3.3 mmol/L (3.4-5.1); Sodium 141 mmol/L (137-145)
== END ==
PROVIDERS: Visit Provider Internal Medicine
DX: A41.9 Sepsis, unspecified organism (principal)
CPT/HCPCS: 80048; 83735; 85025; 87077; 87086; 87186

== ENCOUNTER 2023-04-11 12:41 | Emergency (ER) | payer MEDICARE, MEDICAID, SELFPAY ==
[2023-02-09 08:34] VITALS: BMI 18.3
[2023-04-11 12:42] VITALS: BP 124/65; PULSE 82; RESP 16; TEMP 36.6; O2SAT 99
--- NOTE | 2023-04-11 12:42 | DI.CT.S_ITS ---
PROCEDURE: CT CERVICAL SPINE WO CON INDICATIONS: fall with head injury, altered TECHNIQUE: Noncontrast 3 mm thick sections acquired from the skull base to the T4 level. Sagittal and coronal reformats were then constructed. For radiation dose reduction, the following was used: automated exposure control, adjustment of mA and/or kV according to patient size. COMPARISON: [facility], CT, CT CERVICAL SPINE WO CON, 02/09/2023, 3:08. FINDINGS: Image quality: Image quality is poor due to extensive motion artifact. Bones: Within the limitations of extensive motion, no gross fracture or subluxation is identified. fractures or dislocations. Visualized superior ribs are intact. Multilevel degenerative changes of the cervical spine. Soft tissues: Prevertebral soft tissues are normal in thickness. No paravertebral hematomas. No apical pneumothoraces. IMPRESSION: 1. No acute traumatic abnormality of the cervical spine. 2. Multilevel degenerative changes of the cervical spine. Dictated by: Madi Ramirez M.D. on 04/11/2023 at 13:25 Approved by: Madi Ramirez M.D. on 04/11/2023 at 13:27
--- NOTE | 2023-04-11 12:42 | DI.CT.S_ITS ---
PROCEDURE: CT HEAD/BRAIN WO CON INDICATIONS: fall with head injury, altered TECHNIQUE: Noncontrast 4.5 mm thick angled axial sections acquired from the foramen magnum to the vertex, with coronal and sagittal reformats. For radiation dose reduction, the following was used: automated exposure control, adjustment of mA and/or kV according to patient size. COMPARISON: [facility], CT, CT HEAD/BRAIN WO CON, 02/09/2023, 3:08. FINDINGS: Image quality: Excellent. CSF spaces: Basal cisterns are patent. No extra-axial fluid collections. The ventricles are symmetric in size and shape. Brain: No intracranial bleeds or masses. There is cerebral volume loss for age, with resultant ventricular and sulcal prominence. There are periventricular and deep white matter chronic small vessel ischemic changes. There is intracranial internal carotid artery atherosclerosis. Skull and face: Calvarium and visualized facial bones appear intact, without suspicious lesions. Sinuses: Visualized sinuses and mastoids are clear. IMPRESSION: 1. No acute intracranial abnormality. 2. Cerebral volume loss and small vessel ischemic changes. Dictated by: Madi Ramirez M.D. on 04/11/2023 at 13:27 Approved by: Madi Ramirez M.D. on 04/11/2023 at 13:29
--- NOTE | 2023-04-11 12:50 | DI.CT.S_ITS ---
PROCEDURE: CT PEL WO CON INDICATIONS: fall with bilateral hip pain TECHNIQUE: Noncontrast 3 mm axial sections acquired through the bony pelvis, with coronal and sagittal reformatting. COMPARISON: None. FINDINGS: Image quality: Excellent. Bones: Status post right hip replacement without complication observed. Degenerative changes of the left hip. No fracture of the pelvis or visualized lumbar spine. Soft tissues: No acute soft tissue abnormality IMPRESSION: No acute traumatic abnormality. Dictated by: Madi Ramirez M.D. on 04/11/2023 at 13:21 Approved by: Madi Ramirez M.D. on 04/11/2023 at 13:25
--- NOTE | 2023-04-11 13:02 | ED.GENADULT ---
HPI - General Adult General Chief complaint: Fall Stated complaint: GLF Time Seen by Provider: 04/11/23 12:42 History of Present Illness HPI narrative: 67-year-old female with history of fall and dementia presents by EMS for evaluation of an unwitnessed ground level fall in which she suffered a small centrally located scalp laceration. She also admits to some bilateral hip pain. Otherwise no vomiting, she is not anticoagulated. No chest pain or shortness of breath. Related Data Home Medications Medication Instructions Recorded Confirmed citalopram 10 mg tablet 10 mg PO DAILY 02/09/23 02/09/23 ibuprofen 200 mg PO DAILY Pain 02/09/23 02/09/23 Previous Rx's Medication Instructions Recorded lorazepam 0.5 mg tablet 0.5 mg PO Q6HR PRN Agitation #30 02/16/23 tabs quetiapine 25 mg tablet 12.5 mg PO BID #30 tabs 02/16/23 Allergies Allergy/AdvReac Type Severity Reaction Status Date / Time No Known Drug Allergies Allergy Verified 04/11/23 13:11 Review of Systems Review of Systems ROS Unobtainable: Unobtainable due to mental status/LOC Patient History Social History marital status: household members: caregiver Smoking Status: Never smoker alcohol intake: former Smoking Status: Never smoker Substance Use Type: does not use Exam Narrative Exam Narrative: GENERAL: [67] year old patient appears stated age. Well-developed patient, GCS 15 HEAD: 1cm midline laceration of scalp, no active bleeding. No evidence of depressed skull fracture EYES: Pupils equal round and reactive. Extraocular motions intact. No scleral icterus. No injection or drainage. ENT: Nose without bleeding, purulent drainage. Throat without erythema, tonsillar hypertrophy or exudate. Airway patent. NECK: Trachea midline. Non tender CARDIOVASCULAR: Regular rate and rhythm without murmurs, gallops, or rubs. RESPIRATORY: Clear to auscultation. Breath sounds equal bilaterally. No wheezes, rales, or rhonchi. GASTROINTESTINAL: Abdomen soft, non-tender, nondistended. EXTREMITIES: No edema or joint tenderness. BACK: Nontender without deformity or crepitance. No flank tenderness. NEURO: Cranial nerves 2-12 grossly intact SKIN: No rash or erythema of visible areas Initial Vital Signs Initial Vital Signs: Vital Signs Temperature 97.9 F 04/11/23 12:42 Pulse Rate 82 04/11/23 12:42 Respiratory Rate 16 04/11/23 12:42 Blood Pressure 124/65 04/11/23 12:42 Pulse Oximetry 99 04/11/23 12:42 Oxygen Delivery Method Room Air 04/11/23 12:42 Procedures Laceration Repair Laceration 1: Site: scalp Size (cm): 1.0 Description: linear Depth: simple, single layer Local Anesthetic: lidocaine 1% and with epi Amount of anesthesia used (mL): 3 Pre-repair: wound explored and cleansed with chlorhexadine Skin layer closed with: alex Course Orders Ordered: ED Orders 04/11/23 12:42 CT cervical spine wo con Stat CT head/brain wo con Stat 04/11/23 12:50 CT pelvis wo con Stat 04/11/23 13:05 XR ankle LT 2V Stat Vital Signs Vital signs: Vital Signs - 8 hr 04/11/23 12:42 Temperature 97.9 F Pulse Rate 82 Respiratory Rate 16 Blood Pressure 124/65 Pulse Oximetry 99 Oxygen Delivery Method Room Air Medical Decision Making [facility] Narrative Medical decision making narrative: [67] year old patient presents with unwitnessed ground level fall Multiple etiologies for patient's symptoms considered including, but not limited to: [] Prior Charts reviewed in our EMR Primary Historian: patient Imaging reviewed: CT of head, C-spine and pelvis without acute bony injury, right ankle x-ray without abnormality Patient's symptoms improved over duration of stay with above-stated therapies. Findings and discharge diagnosis discussed with patient/family followed by verbalization of understanding Return precautions discussed with patient/family whom verbalize understanding of diagnosis and plan Discharge Plan Departure Patient Disposition: Home Clinical Impression: Laceration of scalp, Acute ankle pain, Acute hip pain Instructions: How to Prevent Falls Activity Restrictions/Additional Instructions: *You have been diagnosed with [fall with scalp laceration] *What to do: *Please continue to take your regular medications as directed. * Please keep the wound clean and dry to the best of your ability. Please monitor for signs of infection such as redness to the skin or increasing pain. Have the sutures/alex removed by your doctor in about 7 days. If you are unable to get into your doctor, we would be happy to remove the sutures/alex in that same timeframe. *Return to Emergency Department if you should have any new, worsening or concerning symptoms, such as [fever greater than 101 F, shaking chills, worsening pain, persistent vomiting or other bothersome symptoms] Prescriptions: No Action citalopram 10 mg tablet 10 mg PO DAILY ibuprofen 200 mg PO DAILY quetiapine 25 mg Tablet 12.5 mg PO BID Qty: 30 0RF lorazepam 0.5 mg Tablet 0.5 mg PO Q6HR PRN (Reason: Agitation) Qty: 30 0RF Referrals: Miscellaneous,Doctor, MD [Primary Care Provider] - Stand Alone Forms: Patient Portal/API
--- NOTE | 2023-04-11 13:05 | DI.RAD.S_ITS ---
PROCEDURE: XR ANKLE LT 2V INDICATIONS: pain, fall TECHNIQUE: 2 views of the ankle were acquired. COMPARISON: None. FINDINGS: Bones: Diffuse osteopenia . No fractures or dislocations. Ankle mortise is normally aligned. No suspicious bony lesions. Soft tissues: No tibiotalar joint effusion. Achilles tendon appears normal. IMPRESSION: Diffuse osteopenia. No evidence acute bony abnormality. If clinical suspicion and/or symptoms persist, further assessment with repeat plain films, or advanced imaging (e.g., CT, MRI, or bone scan) may be helpful for further assessment. Dictated by: Avtar Berman M.D. on 04/11/2023 at 14:07 Approved by: Avtar Berman M.D. on 04/11/2023 at 14:08
[2023-04-11] MEDS: LIDOCAINE 2% W/EPI INJ 20 ML (13:45)
--- NOTE | 2023-04-11 14:41 | PC.NURSE ---
3 attempts to contact [facility], all 3 calls went to voice mail, a message was left.
--- NOTE | 2023-04-11 14:49 | PC.NURSE ---
2 more attempt to reach a staff member at [facility], both the nurse line and primary phone numbers attempted with no answer.
== END 2023-04-11 16:21 | disposition home or self-care (01) ==
PROVIDERS: Emergency Provider Emergency Medicine
DX: S01.01XA Laceration without foreign body of scalp, initial encounter (principal); M25.552 Pain in left hip; M25.551 Pain in right hip; M25.572 Pain in left ankle and joints of left foot; W18.30XA Fall on same level, unspecified, initial encounter; R41.82 Altered mental status, unspecified
CPT/HCPCS: 12001; 70450; 72125; 72192; 73600; 99281; 99284